=== PATIENT | male | born 1940 | race Caucasian/White ===

== ENCOUNTER 2019-10-31 01:32 | Emergency (ER) | payer MEDICARE, OTHER, SELFPAY ==
--- NOTE | 2019-10-31 01:37 | ECG_ITS ---
Measurements Intervals [place] Rate: 68 P: 15 MI: 150 QRS: -9 QRSD: 85 T: 10 QT: 372 QTc: 398 SINUS RHYTHM Compared to ECG 03/18/2018 18:04:08 Atrial fibrillation no longer present ST (T wave) deviation no longer present Electronically Signed On 11-01-2019 15:44:26 CDT by Mary Day M.D. [id number] f
--- NOTE | 2019-10-31 01:37 | XR_ITS ---
WS: [id number] PORTABLE CHEST HISTORY: cough COMPARISON: 03/18/2018 Linear atelectasis or scar in the LEFT lower lobe. Otherwise lungs are clear. No pneumonia. No pleura l effusion or pneumothorax. Cardiac size: Normal. Mediastinum/Aorta: Mild atherosclerosis aorta. No osseous abnormality seen. XR/XR chest 1V portable [id number] IMPRESSION: Minimal atelectasis or scar LEFT lower lobe. No pneumonia.
[2019-10-31 01:41] VITALS: BP 160/112; PULSE 120; RESP 18; TEMP 36.6; O2SAT 94; BMI 27.8
--- NOTE | 2019-10-31 01:51 | ED_ITS ---
HPI - Chest Pain General: Chief Complaint: Arrhythmia/Palpitations Stated Complaint: POSS AFIB Time Seen by Provider: 10/31/19 01:36 History of Present Illness: HPI narrative: Mr. Pedersen is a very nice 79-year-old male who comes in feeling chest tightness with palpitations. He has a history of paroxysmal atrial fibrillation and currently takes Eliquis for this. He states that he takes metoprolol twice daily for this and his symptoms started tonight just before taking his home metoprolol. He describes his chest discomfort as the palpitations and some mild tightness. There is no radiation of his pain. He does have some mild shortness of breath made worse with exertion. All the symptoms started tonight after his palpitations began. He denies any nausea or vomiting and he denies any diaphoresis. He believes that his palpitations may be caused by increased caffeine intake recently. Associated symptoms: Reports dyspnea and palpitations; Deny abdominal pain, diaphoresis, fever(s), nausea, syncope or vomiting Review of Systems General: Reports: other (negative unless marked) Const: Denies: fever, chills, body aches, fatigue, malaise or diaphoresis Eyes: Denies: change in vision or blurry vision ENMT: Denies: throat pain, painful swallowing, hoarseness, ear pain, ear discharge, Change in hearing or nasal discharge Card: Reports: chest pain, palpitations, irregular heart rhythm and shortness of breath on exertion; Denies: syncope, pre-syncope or shortness of breath when lying down Resp: Reports: shortness of breath; Denies: productive cough, non-productive cough, wheezing, coughing up blood or chest congestion GI: Denies: abdominal pain, nausea, vomiting, vomiting blood, coffee grounds in vomit, diarrhea, constipation, cramping, blood in stool or black tarry stool : Denies: flank pain, difficulty urinating, painful urination, urinary frequency, urinary urgency, decreased urine ouput, urinary incontinence or blood in urine Musc: Denies: neck pain, back pain, extremity pain, extremity swelling, joint pain, joint swelling, joint warmth or joint stiffness Skin/Breast: Denies: rash, skin tenderness or yellow skin Neuro: Denies: headache, numbness in extremities, weakness in extremities, changes in sensation, lack of coordination, difficulty walking, dizziness, vertigo or confusion Endo: Denies: excessive thirst, tired all the time, cold intolerance, excessive sweating, flushing or hot flashes Enmanuel/Lymph: Denies: easy bruising, easy bleeding, petechiae or enlarged lymph nodes All/Imm: Denies: hives, throat swelling, tongue swelling, facial swelling or acute wheezing PFSH ED PFSH: Social History Smoking and tobacco status: former smoker Alcohol intake: never Physical Exam Const: COMMON NORMALS: no apparent distress, oriented x3, no limitations, healthy appearing and well nourished EXAM LIMITATIONS: no altered mental status GENERAL APPEARANCE: cooperative, well kempt and well developed ORIENTATION/CONSCIOUSNESS: Yes awake HENMT: COMMON NORMALS: normocephalic, head/scalp atraumatic, hearing grossly normal bilaterally, external ears normal, EAC's normal, external nose normal and moist oral mucous membranes HEAD & SCALP: normal to inspection, normocephalic and atraumatic FACE & SINUS: normal facial exam and face symmetric NOSE: external nose normal and nares normal EXTERNAL EAR: Yes external ears normal EXTERNAL AUDITORY CANAL: EAC's normal MOUTH: oral and palatal mucosa normal and tongue normal Eye: COMMON NORMALS: PERRL, EOMs intact bilaterally, conjunctivae normal and no scleral icterus GENERAL EYE: normal appearance of both eyes and normal light reflex CONJUNCTIVA: Yes conjunctivae normal SCLERA: sclerae normal CORNEA: Yes corneas normal PUPIL: Yes PERRL DIRECT OPHTHALMOSCOPY: Yes normal light reflex Neck/C-Spine: COMMON NORMALS: full ROM, no lymphadenopathy, supple, no mening eal signs and no JVD GENERAL: Yes normal visual inspection and Yes trachea midline CERVICAL SPINE: Yes cervical ROM normal Chest: COMMONS NORMALS: inspection of chest normal and palpation of chest normal Resp: COMMON NORMALS: normal respiratory effort, no retractions, no use of accessory muscles and clear to auscultation bilaterally EFFORT & INSPECTION: Yes able to speak in complete sentences AUSCULTATION: clear to auscultation bilaterally Cardio: COMMON NORMALS: no JVD, S1 normal heart sound, S2 normal heart sound, no gallops, no clicks, no murmurs and no rub JUGULAR VENOUS DISTENTION: no JVD RATE: tachycardic RHYTHM: abnormal rhythm irregularly irregular HEART SOUNDS: S1 normal and S2 normal GI: COMMON NORMALS: soft to palpation, non-tender, no hepatosplenomegaly and no masses INSPECTION: Yes normal to inspection PALPATION: Yes soft and Yes no hepatosplenomegaly : COMMON NORMALS: Yes no CVA tenderness BLADDER/KIDNEY EXAM: Yes no CVA tenderness Back/Pelvis: COMMON NORMALS: no CVA tenderness, thoracic and lumbar spine normal to inspection, no thoracic nor lumbar tenderness and thoraco-lumbar ROM normal Extremity: COMMON NORMALS: normal to inspection, full ROM, normal capillary refill, no joint enlargement, no clubbing, cyanosis or edema and no calf tenderness Neuro: COMMON NORMALS: oriented x3, CN's II-XII intact bilaterally, moves all extremities, no focal motor deficits and no sensory deficits noted MENINGEAL SIGNS: Yes no meningeal signs Psych: COMMON NORMALS: mental status grossly normal, thought process normal, cooperative, affect normal, speech normal and activity/motor behavior normal APPEARANCE: Yes well kempt SPEECH: Yes normal speech THOUGHT PROCESS: normal thought process Skin: COMMON NORMALS: no rashes or lesions noted, skin turgor normal, no jaundice, no petechiae and no mottling GENERAL SKIN EXAM: no rashes or lesions noted and turgor normal Course Vital Signs: Vital signs: Vital Signs Temperature 97.8 F 10/31/19 01:41 Pulse Rate 120 H 10/31/19 01:41 Respiratory Rate 18 10/31/19 01:41 Blood Pressure 160/112 10/31/19 01:41 Pulse Oximetry 94 10/31/19 01:41 MDM - Chest Pain MDM Narrative: Medical decision making narrative: Mr. Pedersen is an 79-year-old male who comes in complaining of palpitations and a vague chest discomfort with this. When he arrived looked as though he was in A. fib. He had a rapid irregular heart rhythm and he has a history of going into paroxysmal A. fib. He is already anticoagulated but just a few minutes before his EKG was performed he had a change in his heart rate and he appeared regular on the monitor. Twelve-lead EKG reveals a normal sinus rhythm with no acute ST or T wave changes. I asked him about this and he said he did feel a sudden change and all this discomfort was gone. His lab work is unremarkable and his troponin is undetectable. I have offered to monitor him further with further testing of his heart but he declines. He wants to go home as he is feeling better. He understands he is welcome to return anytime should he change his mind. Lab Data: Attestation: I reviewed the patient's lab results. Labs: Lab Results 10/31/19 10/31/19 10/31/19 Range/Units 02:00 02:00 02:00 WBC 8.1 (4.0-10.0) 10^3/ uL RBC 5.61 H (4.1-5.3) 10^6/u L Hgb 17.6 H (11.7-16.6) g/dL Hct 51.4 (42.0-52.0) % MCV 91.6 (80-94) fL MCH 31.4 (28.0-34.0) pg MCHC 34.2 (30.0-36.0) g/dL RDW 13.6 (12.1-15.1) % Plt Count 215 (130-400) 10^3/c mm MPV 10.9 H (7.4-10.4) fL Neut % (Auto) 64.3 % Lymph % (Auto) 25.3 % Assumption % (Auto) 6.7 % Eos % (Auto) 2.2 % Baso % (Auto) 1.0 % Neut # (Auto) 5.2 (1.8-7.7) 10^3/u L Lymph # (Auto) 2.1 (0.8-4.8) 10^3/u L Assumption # (Auto) 0.5 (0.2-0.9) 10^3/u L Eos # (Auto) 0.2 (0.0-0.8) 10^3/u L Baso # (Auto) 0.1 (0.0-0.1) 10^3/u L Nucleated RBC % (a uto) 0 % Nucleated RBCs # 0.0 /100WBC Sodium 143 (136-145) mmol/L Potassium 4.3 (3.5-5.1) mmol/L Chloride 104 (98-107) mmol/L Carbon Dioxide 25 (22-29) mmol/L Anion Gap 18.3 (5-19) BUN 15 (8-23) mg/dL Creatinine 1.4 H (0.7-1.2) mg/dL Glucose 130 H (65-115) mg/dL Calculated Osmolal ity 294 (285-295) mOsm/k g Calcium 9.9 (8.5-10.5) mg/dL Magnesium 2.1 (1.7-2.3) mg/dL Total Bilirubin 0.4 (0.15-1.2) mg/dL AST 25 (0-40) U/L ALT 22 (0-41) U/L Alkaline Phosphata se 69 (40-130) IU/L Troponin T Baselin e 14 (0-15) ng/mL Total Protein 7.0 (6.6-8.7) g/dL Albumin 4.5 (3.5-5.2) g/dL Globulin 2.5 (1.3-4.6) g/dL TSH 4.06 (0.27-4.20) uIU/ mL Urine Color (Yellow) Urine Appearance (CLEAR) Urine pH (5-7) Ur Specific Gravit y (1.005-1.030) Urine Protein (Negative) Urine Glucose (UA) (Normal) Urine Ketones (Negative) Urine Blood (Negative) Urine Nitrate (Negative) Urine Bilirubin (NEGATIVE) Urine Urobilinogen (Negative) mg/dL Ur Leukocyte Sarah ase (Negative) Urine RBC (0-2) /hpf Urine WBC (0-5) /hpf Ur Squamous Epith Cells (0-5) Urine Bacteria (NONE) 10/30/ Range/Units 02:10 WBC (4.0-10.0) 10^3/ uL RBC (4.1-5.3) 10^6/u L Hgb (11.7-16.6) g/dL Hct (42.0-52.0) % MCV (80-94) fL MCH (28.0-34.0) pg MCHC (30.0-36.0) g/dL RDW (12.1-15.1) % Plt Count (130-400) 10^3/c mm MPV (7.4-10.4) fL Neut % (Auto) % Lymph % (Auto) % Assumption % (Auto) % Eos % (Auto) % Baso % (Auto) % Neut # (Auto) (1.8-7.7) 10^3/u L Lymph # (Auto) (0.8-4.8) 10^3/u L Assumption # (Auto) (0.2-0.9) 10^3/u L Eos # (Auto) (0.0-0.8) 10^3/u L Baso # (Auto) (0.0-0.1) 10^3/u L Nucleated RBC % (a uto) % Nucleated RBCs # /100WBC Sodium (136-145) mmol/L Potassium (3.5-5.1) mmol/L Chloride (98-107) mmol/L Carbon Dioxide (22-29) mmol/L Anion Gap (5-19) BUN (8-23) mg/dL Creatinine (0.7-1.2) mg/dL Glucose (65-115) mg/dL Calculated Osmolal ity (285-295) mOsm/k g Calcium (8.5-10.5) mg/dL Magnesium (1.7-2.3) mg/dL Total Bilirubin (0.15-1.2) mg/dL AST (0-40) U/L ALT (0-41) U/L Alkaline Phosphata se (40-130) IU/L Troponin T Baselin e (0-15) ng/mL Total Protein (6.6-8.7) g/dL Albumin (3.5-5.2) g/dL Globulin (1.3-4.6) g/dL TSH (0.27-4.20) uIU/ mL Urine Color Yellow (Yellow) Urine Appearance Clear (CLEAR) Urine pH 7 (5-7) Ur Specific Gravit y 1.010 (1.005-1.030) Urine Protein Neg (Negative) Urine Glucose (UA) Norm (Normal) Urine Ketones Negative (Negative) Urine Blood Neg (Negative) Urine Nitrate Negative (Negative) Urine Bilirubin Neg (NEGATIVE) Urine Urobilinogen Norm (Negative) mg/dL Ur Leukocyte Sarah ase Negative (Negative) Urine RBC Rare (0-2) /hpf Urine WBC Rare (0-5) /hpf Ur Squamous Epith Cells Rare (0-5) Urine Bacteria Trace (NONE) Imaging Data^: CXR: My impression: No acute cardiopulmonary findings. EKG Data^: EKG 1: Attestation: I personally reviewed and interpreted this EKG as follows: EKG interpretation date: 10/31/19 EKG interpretation time: 02:15 Interpretation: Normal sinus rhythm at 68 beats a minute, normal intervals, no blocks, no acute ST or T wave changes. Discharge Plan Discharge Patient Disposition: Home, Self-Care Clinical Impression: Atrial fibrillation Qualifiers: Atrial fibrillation type: paroxysmal Qualified Code(s): I48.0 - Paroxysmal atrial fibrillation Chest pain Qualifiers: Chest pain type: unspecified Qualified Code(s): R07.9 - Chest pain, unspecified Condition: Stable Prescriptions: No Action levothyroxine 25 mcg tablet 25 mcg PO DAILY RF: 0 simvastatin 20 mg tablet 20 mg PO DAILY RF: 0 docusate sodium 100 mg capsule 100 mg PO DAILY RF: 0 aspirin [Adult Low Dose Aspirin] 81 mg tablet,delayed release (DR/EC) 81 mg PO DAILY RF: 0 fluticasone propion-salmeterol [Advair Diskus] 250-50 mcg/dose blister with device 1 inh INHALATION Q12H RF: 0 multivitamin with minerals Tablet 1 tab PO DAILY RF: 0 metoprolol tartrate 25 mg tablet 25 mg PO BID RF: 0 Eliquis 5 mg tablet 5 mg PO BID RF: 0 Discharge Orders: Discharge Order (Routine); Ordered 10/31/19 Ordered By: Karen Umana Referrals: Les Marmolejo DO [Primary Care Provider] - 1-3 days Discharge Diet: Advance as tolerated Discharge Activity: Resume usual activity Patient Instructions: Atrial Fibrillation (ED), Chest Pain (ED) Activity Restrictions/Additional Instructions: Please return to the ER immediately for any of the signs or symptoms listed on your discharge instruction sheets, worsening/changing of your symptoms, you are not getting better as quickly as expected, or for ANY other cause or concerns. You have been offered more evaluation of your heart including more EKGs and laboratory test but you have declined. If you change your mind or your symptoms return you are more than welcome to return to the ER for recheck. Coding Level of Care Code ED Email Marketing Assistant for Stephanieg Fwd Exam Comprehensive
[2019-10-31 02:13] LABS: Basophils # 0.1 10^3/uL (0.0-0.1); Eosinophils # 0.2 10^3/uL (0.0-0.8); Eosinophils % 2.2 %; Hematocrit 51.4 % (42.0-52.0); Hemoglobin 17.6 g/dL (11.7-16.6); Lymphocytes # 2.1 10^3/uL (0.8-4.8); Lymphocytes % 25.3 %; Mean Corpuscular HGB Conc 34.2 g/dL (30.0-36.0); Mean Corpuscular Hemoglobin 31.4 pg (28.0-34.0); Mean Corpuscular Volume 91.6 fL (80-94); Mean Platelet Volume 10.9 fL (7.4-10.4); Monocytes # 0.5 10^3/uL (0.2-0.9); Monocytes % 6.7 %; Neutrophils # 5.2 10^3/uL (1.8-7.7); Neutrophils % 64.3 %; Nucleated Red Blood Cells % 0 %; Platelet Count 215 10^3/cmm (130-400); Red Blood Count 5.61 10^6/uL (4.1-5.3); Red Cell Distribution Width 13.6 % (12.1-15.1); White Blood Count 8.1 10^3/uL (4.0-10.0)
[2019-10-31 02:42] LABS: Troponin(5th) Baseline 14 ng/mL (0-15)
[2019-10-31 02:51] LABS: Alanine Aminotransferase 22 U/L (0-41); Albumin Level 4.5 g/dL (3.5-5.2); Alkaline Phosphatase 69 IU/L (40-130); Anion Gap 18.3 (5-19); Blood Urea Nitrogen 15 mg/dL (8-23); Calcium 9.9 mg/dL (8.5-10.5); Carbon Dioxide 25 mmol/L (22-29); Chloride 104 mmol/L (98-107); Globulin 2.5 g/dL (1.3-4.6); Glucose 130 mg/dL (65-115); Magnesium 2.1 mg/dL (1.7-2.3); Osmolality Calculated 294 mOsm/kg (285-295); Potassium 4.3 mmol/L (3.5-5.1); Sodium 143 mmol/L (136-145); Thyroid Stimulating Hormone 4.06 uIU/mL (0.27-4.20); Total Bilirubin 0.4 mg/dL (0.15-1.2)
[2019-10-31 02:53] LABS: Aspartate Amino Transferase 25 U/L (0-40)
[2019-10-31 03:00] LABS: Bacteria Urine TRACE; Bilirubin Urine Neg (NEGATIVE); Blood Urine Neg (Negative); Glucose Urine UA Norm (Normal); Ketones Urine Negative (Negative); Leukocyte Esterase Urine Negative (Negative); Nitrate Urine Negative (Negative); Protein Urine Neg (Negative); RBC Urine RARE /hpf (0-2); Squamous Epithelial Cell Urine RARE (0-5); Urine Appearance Clear (CLEAR); Urine Color Yellow (Yellow); Urobilinogen Urine Norm (Negative); WBC Urine RARE /hpf (0-5); pH Urine 7 (5-7)
[2019-10-31 03:30] VITALS: BP 121/88; PULSE 64; RESP 17; O2SAT 93
== END 2019-10-31 03:30 | disposition home or self-care (01) ==
PROVIDERS: Emergency Provider Emergency Medicine; Family Provider Family Medicine; PCP Family Medicine
DX: I48.0 Paroxysmal atrial fibrillation (principal); Z79.82 Long term (current) use of aspirin; Z79.01 Long term (current) use of anticoagulants; Z87.891 Personal history of nicotine dependence
CPT/HCPCS: 12345; 71045; 80053; 81001; 83735; 84443; 84484; 85025; 93005; 96360; 99283; 99284

== ENCOUNTER 2019-12-02 07:56 | Outpatient (CLI) | payer MEDICARE, OTHER, SELFPAY ==
--- NOTE | 2019-12-02 08:22 | ECG_ITS ---
NAME OF STUDY: LEXISCAN SESTAMIBI STRESS TEST INDICATION: Chest Pain, PROCEDURE: At the baseline, the EKG revealed sinus bradycardia with normal ST-T's. The baseline blood pressure was 138/70 mm Hg with a heart rate of 65 beats/min. Lexiscan was infused over a period of 20 seconds. A total of 0.4 milligrams of Lexiscan was infused. The stress phase was continued for a total of 5 minutes. Heart rate at the end of the stress phase was 74 with a blood pressure 148/82. The EKG at the peak infusion revealed normal sinus rhythm with some nonspecific T wave change. Sestamibi was injected 20 seconds after the Lexiscan infusion. Blood pressure at the end of the recovery phase was 158/83 with a heart rate of 72 per minute. CONCLUSION: 1. No significant EKG changes with the LexiScan infusion 2. No LexiScan induced chest pain or cardiac arrhythmia 3. Normal blood pressure and heart rate response 4. Sestamibi/sestamibi perfusion scan pending; see separate report. Electronically Signed On 12-02-2019 13:50:54 CDT by Michele Nguyen M.D. [id number]
--- NOTE | 2019-12-02 08:23 | NMCV_ITS ---
NM frank perf SPECT r/s* [id number] Savage Pedersen Age: 79 Gender: M : 1940 Exam Date: 12/02/2019 09:06 Ordering Phys: Michele Nguyen MD ([email or web address]) Technologist: CHRISTINE Coulter Exam Location: [facility] Indications: CHEST PAIN STRESS TEST [facility] IMAGE PROTOCOL Rest/Stress 1 Lexiscan Day Radiopharmaceutical Dose (mCi) Administration Site Administered by Rest: Tc-99m 10.4 IV CHRISTINE Carballo Sestamibi Stress:Tc-99m 32.5 IV CHRISTINE Carballo Sestamibi Rest: 02-Dec-2019 60 Discovery 630 Stress: 02-Dec-2019 30 Discovery 630 0.4mg Lexiscan. Images obtained in supine and prone position. SPECT RESULTS Technical Quality: Excellent Raw Data Analysis: Normal Image Corrections: No attenuation or motion correction applied Summed Stress Score: 0 Summed Rest Score: 0 Summed Difference Score: 0 PERFUSION FINDINGS Fairly uniform tracer uptake FUNCTIONAL RESULTS (calculated via Gated SPECT) Stress Image LV EF (%): 73 Stress EDV (mL):81 TID: 1 Stress ESV (mL):22 FUNCTIONAL FINDINGS: Segmental wall motion analysis revealing no gross wall motion normalities IMPRESSIONS 1. Unremarkable myocardial perfusion imaging. 2. Normal ejection fraction of 73%. 3. LV wall motion analysis revealing no gross wall motion normalities. 4. Normal LV volume. No significant coronary ischemia, based on the above finding Dr Michele Nguyen MD FACC (Electronically Signed) Final Date: 02 December 2019 12:59 S
[2019-12-02 08:25] VITALS: BMI 27.8
[2019-12-02] MEDS: regadenoson 0.4 Mg/5 ml Syringe IVP (10:14)
[2019-12-02 10:16] VITALS: BP 156/68; PULSE 81
== END 2019-12-02 07:57 | disposition home or self-care (01) ==
PROVIDERS: PCP Family Medicine; Visit Provider Internal Medicine Cardiovascular Disease
DX: R07.9 Chest pain, unspecified (principal); R53.83 Other fatigue
CPT/HCPCS: 78452; 93017; A9500; J2785

== ENCOUNTER → 2020-10-13 12:27 | Outpatient (BNVA) | payer MEDICARE, OTHER, SELFPAY | PROVIDERS: PCP Family Medicine; Visit Provider Internal Medicine Cardiovascular Disease | DX: I49.3 Ventricular premature depolarization (principal); R06.02 Shortness of breath; R25.2 Cramp and spasm; N18.9 Chronic kidney disease, unspecified | CPT/HCPCS: 80048; 83735; 84443 ==

== ENCOUNTER 2020-10-24 01:28 | Emergency (ER) | payer MEDICARE, OTHER, SELFPAY ==
[2020-10-24] VITALS (7 sets, daily range): BP systolic 142–195; BP diastolic 79–91; PULSE 52–70; RESP 16–18; TEMP 36.4; O2SAT 92–96; BMI 29.2
--- NOTE | 2020-10-24 01:49 | XRR_ITS ---
PROCEDURE INFORMATION: Exam: XR Chest Exam date and time: 10/24/2020 1:56 AM Age: 80 years old Clinical indication: Prior surgery; Surgery type: Cardiac stents; Patient HX: Chest pain. History of pvc. TECHNIQUE: Imaging protocol: XR of the chest. Views: 1 view. COMPARISON: 1. CR XR chest 1V portable [id number] 2019-10-31 01:52 2. CR Chest 1 [place] [id number] 2018-03-18 18:18 FINDINGS: Lungs: Left basilar subsegmental atelectasis. Pleural spaces: Unremarkable. No pleural effusion. No pneumothorax. Heart/Mediastinum: Unremarkable. No cardiomegaly. Bones/joints: Unremarkable. XR/XR chest 1V portable [id number] IMPRESSION: No acute findings.
[2020-10-24 02:00] LABS: Basophils # 0.1 10^3/uL (0.0-0.1); Eosinophils # 0.2 10^3/uL (0.0-0.8); Eosinophils % 2.6 %; Hematocrit 47.4 % (42.0-52.0); Hemoglobin 16.1 g/dL (11.7-16.6); Lymphocytes % 29.5 %; Mean Corpuscular Hemoglobin 31.3 pg (28.0-34.0); Mean Platelet Volume 10.6 fL (7.4-10.4); Monocytes # 0.6 10^3/uL (0.2-0.9); Neutrophils # 3.95 10^3/uL (1.8-7.7); Neutrophils % 57.5 %; Nucleated Red Blood Cells % 0 %; Platelet Count 178 10^3/cmm (130-400); Red Blood Count 5.15 10^6/uL (4.1-5.3); Red Cell Distribution Width 13.8 % (12.1-15.1); White Blood Count 6.9 10^3/uL (4.0-10.0)
[2020-10-24 02:15] LABS: Alanine Aminotransferase 30 U/L (0-41); Albumin Level 3.7 g/dL (3.5-5.2); Alkaline Phosphatase 53 IU/L (40-130); Blood Urea Nitrogen 18 mg/dL (8-23); Calcium 8.6 mg/dL (8.5-10.5); Carbon Dioxide 22 mmol/L (22-29); Chloride 107 mmol/L (98-107); Globulin 2.5 g/dL (1.3-4.6); Glucose 150 mg/dL (65-115); Osmolality Calculated 295 mOsm/kg (285-295); Sodium 140 mmol/L (136-145); Total Bilirubin 0.3 mg/dL (0.15-1.2); Total Protein 6.2 g/dL (6.6-8.7)
[2020-10-24 02:17] LABS: Anion Gap 15.7 (5-19); Aspartate Amino Transferase 29 U/L (0-40); Potassium 4.7 mmol/L (3.5-5.1); Troponin(5th) Baseline 17 ng/L (0-15)
--- NOTE | 2020-10-24 03:49 | ECG_ITS ---
[facility] Test Date: 2020-10-24 Pat Name: Savage Pedersen Department: Room: Gender: Male Under Baster: : 1940 Requested By: Yuridia Urias Order Number: [id number] Ximena MD: SIVAN PRAJAPATI Measurements Intervals [place] Rate: 59 P: 23 AL: 161 QRS: -7 QRSD: 93 T: 23 QT: 412 QTc: 411 Interpretive Statements SINUS BRADYCARDIA WITH OCCASIONAL VENTRICULAR PREMATURE COMPLEXES MODERATE VOLTAGE CRITERIA FOR LVH, CONSIDER NORMAL VARIANT [MEETS CRITERIA IN ONE OF: R(aVL), S(V1), R(V5), R(V5/V6)+S(V1)] Compared to ECG 10/31/2019 02:15:08 Ventricular premature complex(es) now present Sinus rhythm no longer present Electronically Signed On 10-24-2020 19:20:56 CDT by SIVAN PRAJAPATI [id number]
[2020-10-24 04:23] LABS: Troponin 5 2HR 16.26 ng/L (0-15)
[2020-10-24 04:24] LABS: Troponin 5 2HR Delta -0.74 ABS# (0-10)
--- NOTE | 2020-10-24 21:45 | W.ED.ARRPALP ---
HPI - Arrhythmia/Palpitations General: Chief Complaint: Arrhythmia/Palpitations Stated Complaint: cardiac issues/PVC Time Seen by Provider: 10/24/20 01:48 History of Present Illness: HPI narrative: 80-year-old male who presents with palpitations, and shortness of breath. 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 His metoprolol dosage was recently increased because of this. It seemed to help. But, at 11 PM, he started to get symptoms. They were significant and did not seem to go away an hour and a half after his metoprolol so he decided to come to the hospital. He is feeling a bit better now. He has a machine at home that was registering 30 PVCs per minute. They have seemed to decrease in frequency currently. MD complaint: skipped beats , palpitations and irregular heart beat Onset (ago): hour(s) Duration: constant Severity: moderate Context: occurred during rest Arrhythmia history: other Associated symptoms: Reports nausea and short of breath; Deny syncope or vomiting Treatments prior to arrival: beta-tiara Review of Systems Const: Denies: fever(s) or chills Eyes: Denies: change in vision Card: Reports: chest pain, palpitations and irregular heart rhythm; Denies: syncope Resp: Reports: dyspnea; Denies: productive cough, non-productive cough or wheezing GI: Reports: nausea; Denies: vomiting Neuro: Denies: headache(s), numbness in extremities or weakness in extremities [facility] ED PFSH: Medical History Atherosclerotic heart disease of [place] coronary artery without angina pectoris Atrial fibrillation CAD (coronary artery disease) Chronic renal insufficiency Diabetes Hyperlipidemia Hypertension Hypothyroidism Restrictive lung disease Surgical History History of back surgery History of cholecystectomy Family History Mother CAD (coronary artery disease) Diabetes Brother CAD (coronary artery disease) Father CAD (coronary artery disease) Stroke Denies family history of Clotting disorder Dementia Chronic kidney disease (CKD) Suicide Anesthesia complication Bleeding disorder Lung disease Cancer Social History Smoking and tobacco status: former smoker Alcohol intake: never Physical Exam Const: GENERAL APPEARANCE: well developed ORIENTATION/CONSCIOUSNESS: Yes oriented to person, Yes oriented to place and Yes oriented to time HENMT: COMMON NORMALS: normocephalic and Normal external nose present HEAD & SCALP: normocephalic FACE & SINUS: normal facial exam NOSE: Normal external nose present Eye: COMMON NORMALS: Equal, round and reactive pupils present, EOMs intact bilaterally and conjunctivae normal EYELID: eyelids normal CONJUNCTIVA: Yes conjunctivae normal PUPIL: Yes Equal, round and reactive pupils present Chest: COMMONS NORMALS: normal inspection of the chest CHEST: No tenderness Resp: COMMON NORMALS: clear to auscultation bilaterally EFFORT & INSPECTION: No tachypneic, No respiratory distress, No retractions, No uses accessory muscles and No tracheal deviation AUSCULTATION: clear to auscultation bilaterally, no rhonchi, no wheezes and lung sounds not diminished Cardio: RATE: bradycardic RHYTHM: abnormal rhythm irregularly irregular HEART SOUNDS: no murmurs PERIPHERAL PULSES: radial pulses present GI: INSPECTION: No abdominal distension AUSCULTATION: No Hyperactive bowel sounds present and No Hypoactive bowel sounds present PALPATION: No Guarding due to palpation present (GI) and No Rigid due to palpation PERCUSSION: no dullness to percussion and no tympanic to percussion Neuro: SENSORIUM/ORIENTATION: Yes oriented to person, Yes oriented to place and Yes oriented to time Psych: COMMON NORMALS: mental status grossly normal Skin: COMMON NORMALS: no rashes or lesions noted GENERAL SKIN EXAM: no rashes or lesions noted Course Vital Signs: Vital signs: Vital Signs Temperature 97.6 F 10/24/20 01:34 Pulse Rate 54 L 10/24/20 04:47 Respiratory Rate 18 10/24/20 04:47 Blood Pressure 142/81 10/24/20 04:47 Pulse Oximetry 94 10/24/20 04:47 MDM - Arrhythmia/Palpitations MDM Narrative: Medical decision making narrative: EKG shows a sinus rhythm with occasional PVCs at this point. He has remained that way on the monitor. his electrolytes are normal. His troponin did not elevated 2 hours. His chest x-ray is normal. With improvement in symptoms, he will be allowed home follow-up with cardiology.. Lab Data: Labs: Lab Results 10/24/20 10/24/2021 Range/Units 01:54 01:54 01:54 WBC 6.9 (4.0-10.0) 10^3/ uL RBC 5.15 (4.1-5.3) 10^6/u L Hgb 16.1 (11.7-16.6) g/dL Hct 47.4 (42.0-52.0) % MCV 92.0 (80-94) fL MCH 31.3 (28.0-34.0) pg MCHC 34.0 (30.0-36.0) g/dL RDW 13.8 (12.1-15.1) % Plt Count 178 (130-400) 10^3/c mm MPV 10.6 H (7.4-10.4) fL Neut % (Auto) 57.5 % Lymph % (Auto) 29.5 % [place] % (Auto) 9.0 % Eos % (Auto) 2.6 % Baso % (Auto) 1.0 % Neut # (Auto) 3.95 (1.8-7.7) 10^3/u L Lymph # (Auto) 2.0 (0.8-4.8) 10^3/u L [place] # (Auto) 0.6 (0.2-0.9) 10^3/u L Eos # (Auto) 0.2 (0.0-0.8) 10^3/u L Baso # (Auto) 0.1 (0.0-0.1) 10^3/u L Nucleated RBC % (a uto) 0 % Nucleated RBCs # 0.0 /100WBC Sodium 140 (136-145) mmol/L Potassium 4.7 (3.5-5.1) mmol/L Chloride 107 (98-107) mmol/L Carbon Dioxide 22 (22-29) mmol/L Anion Gap 15.7 (5-19) BUN 18 (8-23) mg/dL Creatinine 1.2 (0.7-1.2) mg/dL GFR Calculation Not Reportable Glucose 150 H (65-115) mg/dL Calculated Osmolal ity 295 (285-295) mOsm/k g Calcium 8.6 (8.5-10.5) mg/dL Magnesium 2.0 (1.7-2.3) mg/dL Total Bilirubin 0.3 (0.15-1.2) mg/dL AST 29 (0-40) U/L ALT 30 (0-41) U/L Alkaline Phosphata se 53 (40-130) IU/L Troponin T Baselin e 17 H (0-15) ng/L Troponin T 120 Min [place] (0-15) ng/L Delta Troponin T (0-10) ABS# Total Protein 6.2 L (6.6-8.7) g/dL Albumin 3.7 (3.5-5.2) g/dL Globulin 2.5 (1.3-4.6) g/dL 10/24/20 Range/Units 04:00 WBC (4.0-10.0) 10^3/ uL RBC (4.1-5.3) 10^6/u L Hgb (11.7-16.6) g/dL Hct (42.0-52.0) % MCV (80-94) fL MCH (28.0-34.0) pg MCHC (30.0-36.0) g/dL RDW (12.1-15.1) % Plt Count (130-400) 10^3/c mm MPV (7.4-10.4) fL Neut % (Auto) % Lymph % (Auto) % [place] % (Auto) % Eos % (Auto) % Baso % (Auto) % Neut # (Auto) (1.8-7.7) 10^3/u L Lymph # (Auto) (0.8-4.8) 10^3/u L [place] # (Auto) (0.2-0.9) 10^3/u L Eos # (Auto) (0.0-0.8) 10^3/u L Baso # (Auto) (0.0-0.1) 10^3/u L Nucleated RBC % (a uto) % Nucleated RBCs # /100WBC Sodium (136-145) mmol/L Potassium (3.5-5.1) mmol/L Chloride (98-107) mmol/L Carbon Dioxide (22-29) mmol/L Anion Gap (5-19) BUN (8-23) mg/dL Creatinine (0.7-1.2) mg/dL GFR Calculation Glucose (65-115) mg/dL Calculated Osmolal ity (285-295) mOsm/k g Calcium (8.5-10.5) mg/dL Magnesium (1.7-2.3) mg/dL Total Bilirubin (0.15-1.2) mg/dL AST (0-40) U/L ALT (0-41) U/L Alkaline Phosphata se (40-130) IU/L Troponin T Baselin e (0-15) ng/L Troponin T 120 Min [place] 16.26 H (0-15) ng/L Delta Troponin T -0.74 L (0-10) ABS# Total Protein (6.6-8.7) g/dL Albumin (3.5-5.2) g/dL Globulin (1.3-4.6) g/dL Discharge Plan Discharge Patient Disposition: Home Clinical Impression: Palpitations, PVC (premature ventricular contraction) Condition: Stable Prescriptions: No Action metoprolol tartrate 50 mg tablet 50 mg PO BID 90 Days Qty: 180 RF: 3 levothyroxine 25 mcg tablet 25 mcg PO DAILY RF: 0 simvastatin 20 mg tablet 20 mg PO DAILY RF: 0 docusate sodium 100 mg capsule 100 mg PO DAILY RF: 0 aspirin [Adult Low Dose Aspirin] 81 mg tablet,delayed release (DR/EC) 81 mg PO DAILY RF: 0 fluticasone propion-salmeterol [Advair Diskus] 250-50 mcg/dose blister with device 1 inh INHALATION Q12H RF: 0 multivitamin with minerals Tablet 1 tab PO DAILY RF: 0 Eliquis 5 mg tablet 5 mg PO BID RF: 0 Discharge Orders: Discharge ED (Routine); Ordered 10/24/20 Ordered By: Stefano Delaney Referrals: Michele Nguyen MD [Physician] - 4-7 days Les Marmolejo DO [Primary Care Provider] - Patient Instructions: Palpitations (ED), Premature Ventricular Contractions (ED) Activity Restrictions/Additional Instructions: Return for continued or worsening palpitations, chest discomfort, shortness of breath, fever, lethargy, syncope or passing out, other concerning symptoms. Coding Level of Care Code ED Human Resources Consultant for Noman Helms
== END 2020-10-24 04:48 | disposition home or self-care (01) ==
PROVIDERS: Physician Assistant; Emergency Provider Emergency Medicine; PCP Family Medicine
DX: I49.3 Ventricular premature depolarization (principal); Z79.01 Long term (current) use of anticoagulants; Z79.82 Long term (current) use of aspirin; I25.10 Atherosclerotic heart disease of native coronary artery without angina pectoris; E11.9 Type 2 diabetes mellitus without complications; E78.5 Hyperlipidemia, unspecified; I10 Essential (primary) hypertension; Z87.891 Personal history of nicotine dependence
CPT/HCPCS: 71045; 80053; 83735; 84484; 85025; 93005; 99283

== ENCOUNTER → 2020-11-10 10:44 | Outpatient (BNVA) | payer MEDICARE, OTHER, SELFPAY | PROVIDERS: PCP Family Medicine; Visit Provider Internal Medicine Cardiovascular Disease | DX: R06.02 Shortness of breath (principal); I50.33 Acute on chronic diastolic (congestive) heart failure; I11.0 Hypertensive heart disease with heart failure; R07.89 Other chest pain; I49.3 Ventricular premature depolarization; I25.10 Atherosclerotic heart disease of native coronary artery without angina pectoris; I48.0 Paroxysmal atrial fibrillation; E78.2 Mixed hyperlipidemia; E11.9 Type 2 diabetes mellitus without complications; Z87.891 Personal history of nicotine dependence | CPT/HCPCS: 80048; 83880 ==

== ENCOUNTER 2020-12-25 15:27 | Outpatient (CLI) | payer MEDICARE, OTHER, SELFPAY ==
--- NOTE | 2020-12-25 15:45 | USCV_ITS ---
Savage Pedersen Age: 80 Gender: M : 1940 Exam Date: 12/25/2020 15:44 Ordering Phys: Michele Nguyen MD ([email or web address]) Technologist: TL Exam Location: [facility] [place] Indication: Other chest pain BP: / HR: 62 Rhythm: Sinus Technical Quality: Adequate MEASUREMENTS (Male / Female) Normal Values 2D ECHO LV Diastolic Diameter PLAX 3.4 cm 4.2 - 5.9 / 3.9 - 5.3 cm LV Systolic Diameter PLAX 2.3 cm IVS Diastolic Thickness 1.7 cm 0.6 - 1.0 / 0.6 - 0.9 cm IVS Systolic Thickness 1.9 cm LVPW Diastolic Thickness 2.2 cm 0.6 - 1.0 / 0.6 - 0.9 cm LVPW Systolic Thickness 2.6 cm LVOT Diameter 2.0 cm LV Ejection Fraction 2D Teich 60.0 % LV Ejection Fraction MOD 2C 36.7 % LV Ejection Fraction 2C AL 35.5 % LA Diameter 3.8 cm LA Width 3.0 cm LA Height 4.3 cm RA Width 2.3 cm RA Height 3.7 cm Aorta at Sinotubular Diameter 3.1 cm M-MODE LV Diastolic Diameter MM 4.9 cm 4.2 - 5.9 / 3.9 - 5.3 cm LV Systolic Diameter MM 2.9 cm LV Ejection Fraction MM Teich 72.1 % IVS Diastolic Thickness MM 1.2 cm 0.6 - 1.0 / 0.6 - 0.9 cm IVS Systolic Thickness MM 1.5 cm LVPW Diastolic Thickness MM 1.6 cm 0.6 - 1.0 / 0.6 - 0.9 cm LVPW Systolic Thickness MM 2.1 cm Aortic Annulus Diameter 3.9 cm LA Ao Ratio MM 1.1 MV E Point Septal Separation 0.9 cm DOPPLER AV Peak Velocity 210.0 cm/s LVOT Peak Velocity 101.0 cm/s AV Area Cont Eq vti 1.5 cm squared AV Area Cont Eq pk 1.5 cm squared MV Area PHT 3.0 cm squared Mitral E to A Ratio 1.2 MV E' Velocity 44.0 cm/s Mitral E to MV E' Ratio 6.4 Mitral E to LV E' Lateral Ratio 6.3 Mitral E to LV E' Septal Ratio 6.5 TR Peak Velocity 227.7 cm/s TR Peak Gradient 20.7 mmHg TV Peak E Velocity 65.0 cm/s Right Atrial Pressure 3.0 mmHg Pulmonary Artery Systolic Pressu 23.7 mmHg PV Peak Velocity 93.0 cm/s RV Acceleration Time 0.1 s RV Ejection Time 0.4 s RV AcT/ET 0.1 FINDINGS Left Ventricle Normal left ventricular size and systolic function, EF 55 %. Mild left ventricular hypertrophy. No regional wall motion abnormalities. Right Ventricle Normal right ventricular size and systolic function. Right Atrium The right atrium is normal in size. Left Atrium The left atrium is normal in size. Mitral Valve No gross abnormalities noted Aortic Valve Thickened aortic valve. Features of aortic valve sclerosis Tricuspid Valve Trace tricuspid valve regurgitation. Estimated pulmonary artery peak systolic pressure of 24 mmHg Pulmonic Valve Pulmonic valve not well visualized. Pericardium Normal pericardium without effusion. Aorta Normal ascending aorta dimension. CONCLUSIONS Normal left ventricular size and systolic function, EF 55 %. Mild left ventricular hypertrophy. No regional wall motion abnormalities. Features of aortic valve sclerosis Trace tricuspid valve regurgitation. Estimated pulmonary artery peak systolic pressure of 24 mmHg There is no pericardial effusion. There are no intracardiac masses. Dr Michele Nguyen MD FACC (Electronically Signed) Final Date: 25 December 2020 17:26 S
== END 2020-12-25 15:28 | disposition home or self-care (01) ==
LOC: US 15:28
PROVIDERS: PCP Family Medicine; Visit Provider Internal Medicine Cardiovascular Disease
DX: R07.89 Other chest pain (principal)
CPT/HCPCS: 93306

== ENCOUNTER → 2021-09-21 15:30 | Outpatient (BNVA) | payer MEDICARE, OTHER, SELFPAY | PROVIDERS: PCP Family Medicine; Visit Provider Nurse Practitioner Family | DX: I49.3 Ventricular premature depolarization (principal); I25.10 Atherosclerotic heart disease of native coronary artery without angina pectoris; E11.9 Type 2 diabetes mellitus without complications; Z87.891 Personal history of nicotine dependence | CPT/HCPCS: 36415; 80048; 83735; 99214 ==

== ENCOUNTER → 2021-09-29 13:02 | Outpatient (BNVA) | payer MEDICARE, OTHER, SELFPAY | PROVIDERS: PCP Family Medicine; Visit Provider Internal Medicine Cardiovascular Disease | DX: R07.9 Chest pain, unspecified (principal); R00.1 Bradycardia, unspecified | CPT/HCPCS: 93246 ==

== ENCOUNTER → 2021-10-05 14:45 | Outpatient (BNVA) | payer MEDICARE, OTHER, SELFPAY | PROVIDERS: PCP Family Medicine; Visit Provider Internal Medicine Cardiovascular Disease | DX: I25.10 Atherosclerotic heart disease of native coronary artery without angina pectoris (principal); I48.0 Paroxysmal atrial fibrillation; R06.02 Shortness of breath | CPT/HCPCS: 99214 ==

== ENCOUNTER 2021-10-06 12:21 | Outpatient (CLI) | payer MEDICARE, OTHER, SELFPAY ==
[2021-10-06 13:38] LABS: Anion Gap 14.4 (5-19); Blood Urea Nitrogen 16 mg/dL (8-23); Calcium 9.4 mg/dL (8.5-10.5); Carbon Dioxide 24 mmol/L (22-29); Chloride 106 mmol/L (98-107); Glucose 119 mg/dL (65-115); NT Pro B Type Natriuretic Pept 439 pg/mL (0-450); Osmolality Calculated 292 mOsm/kg (285-295); Potassium 4.4 mmol/L (3.5-5.1); Sodium 140 mmol/L (136-145); Thyroid Stimulating Hormone 1.91 uIU/mL (0.27-4.20)
== END 2021-10-06 12:22 | disposition home or self-care (01) ==
LOC: LAB 12:24
PROVIDERS: PCP Family Medicine; Visit Provider Internal Medicine Cardiovascular Disease
DX: R06.02 Shortness of breath (principal); I50.33 Acute on chronic diastolic (congestive) heart failure; N18.9 Chronic kidney disease, unspecified
CPT/HCPCS: 80048; 83880; 84443

== ENCOUNTER 2021-10-29 03:59 | Observation (INO) | payer MEDICARE, OTHER, SELFPAY ==
[2021-10-29] VITALS (41 sets, daily range): BP systolic 123–199; BP diastolic 72–96; PULSE 38–92; RESP 0–25; TEMP 36.5–37.1; O2SAT 91–96; BMI 28.5; BMI 28.0
--- NOTE | 2021-10-29 04:24 | XRR_ITS ---
PROCEDURE INFORMATION: Exam: XR Chest Exam date and time: 10/29/2021 4:31 AM Age: 81 years old Clinical indication: Shortness of breath; Patient HX: C/O SOB and weakness. Bradycardic on monitor. TECHNIQUE: Imaging protocol: XR of the chest. Views: 1 view. COMPARISON: CR XR chest 1V portable [id number] 10/24/2020 1:54 AM FINDINGS: Lungs: There is mild subsegmental atelectasis in the left base. There is a poor inspiration with elevation of the diaphragm. No definite pneumonia. Pleural spaces: Unremarkable. No pleural effusion. No pneumothorax. Heart/Mediastinum: Unremarkable. No cardiomegaly. Bones/joints: Unremarkable. XR/XR chest 1V portable [id number] IMPRESSION: Poor inspiration with mild left basilar atelectasis.
--- NOTE | 2021-10-29 04:25 | ECG_ITS ---
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 Measurements Intervals [place] Rate: 69 P: 11 IA: 147 QRS: -6 QRSD: 98 T: 35 QT: 389 QTc: 418 Interpretive Statements SINUS RHYTHM WITH FREQUENT VENTRICULAR PREMATURE COMPLEXES IN A BIGEMINAL PATTERN MINIMAL ST DEPRESSION [0.025+ mV ST DEPRESSION] Compared to ECG 10/24/2020 03:55:56 ST (T wave) deviation now present Sinus bradycardia no longer present Electronically Signed On 10-29-2021 20:28:27 CDT by Mary Day M.D. [id number] f
--- NOTE | 2021-10-29 04:34 | ED_ITS ---
HPI - SOB/Dyspnea General: Chief Complaint: Shortness of Breath/Dyspnea Stated Complaint: SOB Time Seen by Provider: 10/29/21 04:21 Source: patient Mode of arrival: ambulatory Limitations: no limitations History of Present Illness: HPI Narrative: 81-year-old male who states has been having a history of PVCs with bradycardia. He states he has had multiple drug manipulation he was on metoprolol and Cardizem they did recently took him off his Cardizem because metoprolol in half but states that he has had increased feelings of weakness and checked his pulse tonight and it was in the 30s. He does have bigeminy here with true pulse here of 35. Denies any chest pain or shortness of breath Associated symptoms: Deny abdominal pain, nausea or vomiting Review of Systems Const: Reports: malaise Eyes: Denies: blurry vision or eye discomfort ENMT: Denies: throat pain or dental pain Card: Reports: irregular heart rhythm Resp: Denies: dyspnea GI: Denies: abdominal pain, nausea, vomiting or diarrhea : Denies: dysuria Musc: Denies: neck pain or back pain Skin/Breast: Denies: rash Neuro: Denies: headache(s) Psych: Denies: depression Enmanuel/Lymph: Denies: easy bruising All/Imm: Denies: urticaria PFSH ED PFSH: Medical History Atherosclerotic heart disease of [place] coronary artery without angina pectoris Atrial fibrillation CAD (coronary artery disease) Chronic renal insufficiency Diabetes Hyperlipidemia Hypertension Hypothyroidism Restrictive lung disease Surgical History History of back surgery History of cholecystectomy Family History Mother CAD (coronary artery disease) Diabetes Brother CAD (coronary artery disease) Father CAD (coronary artery disease) Stroke Denies family history of Clotting disorder Dementia Chronic kidney disease (CKD) Suicide Anesthesia complication Bleeding disorder Lung disease Cancer Social History Smoking and tobacco status: former smoker Alcohol intake: never Course Vital Signs: Vital signs: Vital Signs Temperature 98.7 F 10/29/21 04:18 Pulse Rate 40 L 10/29/21 04:18 Respiratory Rate 14 10/29/21 04:18 Blood Pressure 199/79 10/29/21 04:18 Pulse Oximetry 96 10/29/21 04:18 MDM - SOB/Dyspnea Medical Decision Making Patient presents here with symptomatic bradycardia his blood pressure here has been normal and his symptoms are mild with mainly malaise. He has been seeing his out of school hours care worker with modification of his medications and he is still in bigeminy here with a true pulse of 35. I discussed case with out of school hours care worker on- call Dr. Nevarez and will admit to the hospitalist with cardiology consult at this time. Lab Data : 10/29/21 04:29 10/29/21 04:29 Labs/Radiology: Laboratory Results WBC 7.3 10^3/uL (4.0-10.0) 10/29/21 04:29 RBC 5.54 10^6/uL (4.1-5.3) H 10/29/21 04:29 Hgb 17.3 g/dL (11.7-16.6) H 10/29/21 04:29 Hct 50.0 % (42.0-52.0) 10/29/21 04:29 MCV 90.3 fl (80-94) 10/29/21 04: MCH 31.2 pg (28.0-34.0) 10/29/21 04: MCHC 34.6 g/dL (30.0-36.0) 10/29/21 04:29 RDW 13.6 % (12.1-15.1) 10/29/21 04:29 Plt Count 179 10^3/cmm (130-400) 10/29/21 04:29 MPV 11.0 fL (7.4-10.4) H 10/29/21 04:29 Neut % (Auto) 48.3 % 10/29/21 04:29 Lymph % (Auto) 38.8 % 10/29/21 04:29 Gem % (Auto) 9.3 % 10/29/21 04:29 Eos % (Auto) 2.1 % 10/29/21 04:29 Baso % (Auto) 1.0 % 10/29/21 04:29 Neut # (Auto) 3.52 10^3/uL (1.8-7.7) 10/29/21 04:29 Lymph # (Auto) 2.8 10^3/uL (0.8-4.8) 10/29/21 04: Gem # (Auto) 0.7 10^3/uL (0.2-0.9) 10/29/21 04: Eos # (Auto) 0.2 10^3/uL (0.0-0.8) 10/29/21 04: Baso # (Auto) 0.1 10^3/uL (0.0-0.1) 10/29/21 04: Nucleated RBC % (auto) 0 % 10/29/21 04: Nucleated RBCs # 0.0 /100WBC 10/29/21 04: PT 15.30 SECONDS (12.1-14.9) H 10/29/21 04: INR 1.17 (0.8-1.2) 10/29/21 04: Sodium 138 mmol/L (136-145) 10/29/21 04: Potassium 4.1 mmol/L (3.5-5.1) 10/29/21 04: Chloride 103 mmol/L (98-107) 10/29/21 04: Carbon Dioxide 22 mmol/L (22-29) 10/29/21 04: Anion Gap 17.1 (5-19) 10/29/21 04: BUN 20 mg/dL (8-23) 10/29/21 04: Creatinine 1.2 mg/dL (0.7-1.2) 10/29/21 04: GFR Calculation Not Reportable 10/29/21 04: Glucose 108 mg/dL (65-115) 10/29/21 04: Calculated Osmolality 289 mOsm/kg (285-295) 10/29/21 04: Calcium 9.9 mg/dL (8.5-10.5) 10/29/21 04: Total Bilirubin 1.1 mg/dL (0.15-1.2) 10/29/21 04: AST 17 U/L (0-40) 10/29/21 04: ALT 19 U/L (0-41) 10/29/21 04: Alkaline Phosphatase 54 IU/L (40-130) 10/29/21 04: Troponin T Baseline 15 ng/L (0-15) 10/29/21 04:29 Total Protein 7.0 g/dL (6.6-8.7) 10/29/21 04: Albumin 4.0 g/dL (3.5-5.2) 10/29/21 04: Globulin 3.0 g/dL (1.3-4.6) 10/29/21 04:29 EKG Data EKG 1: I personally reviewed and interpreted this EKG as follows: EKG Interpretation Date: 10/29/21 EKG interpretation time: Interpretation: bigeminy frequent pvc bradycardia no st or t wave abnormaliies qrs 98 qtc 408 Discharge Plan Discharge Patient Disposition: Admitted As Inpatient Clinical Impression: Bradycardia, Bigeminy Condition: Stable Coding Level of Care Code ED Food And Beverage Attendant for Noman Helms
[2021-10-29 04:38] LABS: Basophils # 0.1 10^3/uL (0.0-0.1); Eosinophils # 0.2 10^3/uL (0.0-0.8); Eosinophils % 2.1 %; Hemoglobin 17.3 g/dL (11.7-16.6); Lymphocytes # 2.8 10^3/uL (0.8-4.8); Lymphocytes % 38.8 %; Mean Corpuscular HGB Conc 34.6 g/dL (30.0-36.0); Mean Corpuscular Hemoglobin 31.2 pg (28.0-34.0); Mean Corpuscular Volume 90.3 fl (80-94); Monocytes # 0.7 10^3/uL (0.2-0.9); Monocytes % 9.3 %; Neutrophils # 3.52 10^3/uL (1.8-7.7); Neutrophils % 48.3 %; Nucleated Red Blood Cells % 0 %; Platelet Count 179 10^3/cmm (130-400); Red Blood Count 5.54 10^6/uL (4.1-5.3); Red Cell Distribution Width 13.6 % (12.1-15.1); White Blood Count 7.3 10^3/uL (4.0-10.0)
[2021-10-29 04:55] LABS: INR 1.17 (0.8-1.2)
[2021-10-29 04:59] LABS: Alanine Aminotransferase 19 U/L (0-41); Alkaline Phosphatase 54 IU/L (40-130); Anion Gap 17.1 (5-19); Aspartate Amino Transferase 17 U/L (0-40); Blood Urea Nitrogen 20 mg/dL (8-23); Calcium 9.9 mg/dL (8.5-10.5); Carbon Dioxide 22 mmol/L (22-29); Chloride 103 mmol/L (98-107); Glucose 108 mg/dL (65-115); Osmolality Calculated 289 mOsm/kg (285-295); Potassium 4.1 mmol/L (3.5-5.1); Sodium 138 mmol/L (136-145); Total Bilirubin 1.1 mg/dL (0.15-1.2); Troponin(5th) Baseline 15 ng/L (0-15)
[2021-10-29 05:17] LABS: NT Pro B Type Natriuretic Pept 213 pg/mL (0-450)
--- NOTE | 2021-10-29 05:45 | P.HP_ITS ---
Providers/Chief Complaint Admitting Physician: Elise Erickson MD Primary Care Provider: Les Marmolejo DO Chief Complaint: SOB History of Present Illness Savage Pedersen is a 81 year old male with h/o CAD, stent placement, and HTN who presented to ED with low HR. His HR at home was around 37-38. He had mild dyspnea. No chest pain. He states his meds have recently been adjusted due to bradycardia. Cardizem was discontinued. Dose of metoprolol was reduced. He is evaluated in ED and noted to have bigeminy on EKG. HR currently 65-70/min. Patient to be placed in observation for cardiology consult and further evaluation Review of Systems General: Reports: 10 or more systems reviewed and unremarkable except in HPI and below Const: Denies: fever(s), chills or body aches Card: Denies: chest pain or palpitations Resp: Reports: dyspnea; Denies: productive cough or wheezing GI: Denies: abdominal pain, nausea or vomiting Musc: Denies: neck pain, back pain or joint pain Skin/Breast: Denies: rash or pruritus Neuro: Denies: headache(s) or numbness in extremities Psych: Denies: anxiety or depression Endo: Denies: polyuria or polydipsia Enmanuel/Lymph: Denies: easy bruising or easy bleeding Medications/Allergies Home Medications Medication Instructions Recorded Confirmed Last Taken Type apixaban 5 mg tablet (Eliquis) 5 mg PO BID 09/11/19 09/21/21 Unknown History docusate sodium 100 mg capsule 100 mg PO DAILY 09/11/19 09/21/21 Unknown History fluticasone 250 mcg-salmeterol 50 1 inh INHALATION Q12H 09/11/19 09/21/21 Unknown History mcg/dose blistr powdr for inhalation (Advair Diskus) levothyroxine 25 mcg tablet 25 mcg PO DAILY 09/11/19 09/21/21 Unknown History multivitamin with minerals 1 tab PO DAILY 09/11/19 09/21/21 Unknown History simvastatin 20 mg tablet 20 mg PO DAILY 09/11/19 09/21/21 Unknown History magnesium oxide 400 mg PO DAILY #90 tab 10/30/20 09/21/21 Unknown Rx isosorbide dinitrate 5 mg tablet 5 mg PO BID #180 tab 11/27/20 09/21/21 Unknown Rx Custom Functional Molded Orthotics #1 ea 04/27/21 09/21/21 Unknown Rx metoprolol tartrate 50 mg tablet 25 mg PO BID 90 Days #90 tab 10/05/21 10/05/21 Unknown Rx diltiazem HCl 30 mg tablet 30 mg PO Q8H #90 tab 10/08/21 Unknown Rx Allergies Allergy/AdvReac Type Severity Reaction Status Date / Time No Known Allergies Allergy Verified 10/05/21 08:48 PFSH Acute PFSH: Medical History Atherosclerotic heart disease of [place] coronary artery without angina pectoris Atrial fibrillation CAD (coronary artery disease) Chronic renal insufficiency Diabetes Hyperlipidemia Hypertension Hypothyroidism Restrictive lung disease Surgical History History of back surgery History of cholecystectomy Family History Mother CAD (coronary artery disease) Diabetes Brother CAD (coronary artery disease) Father CAD (coronary artery disease) Stroke Denies family history of Clotting disorder Dementia Chronic kidney disease (CKD) Suicide Anesthesia complication Bleeding disorder Lung disease Cancer Social History Smoking and tobacco status: former smoker Alcohol intake: never Vitals/I&O/Wt Last Vital Signs Temp 98.7 F 10/29/21 04:18 Pulse 40 L 10/29/21 04:18 Resp 14 10/29/21 04:18 BP 199/79 10/29/21 04:18 Pulse Ox 96 10/29/21 04:18 Weight last 48 hrs Weight 92.986 kg Physical Exam Const: COMMON NORMALS: no acute distress, patient oriented x3 and alert Neck/C-Spine: COMMON NORMALS: full ROM, no meningeal signs and No carotid bruits Resp: AUSCULTATION: clear to auscultation bilaterally Cardio: OTHER: irregular with rate of 70/min GI: PALPATION: Yes Soft to palpation, No Tenderness to palpation present (GI), No Guarding due to palpation present (GI) and Yes No hepatosplenomegaly present Extremity: GENERAL: No clubbing, No cyanosis and No edema Neuro: COMMON NORMALS: patient oriented x3, moves all extremities, no focal motor deficits, no sensory deficits noted and deep tendon reflexes 2+ bilaterally Psych: APPEARANCE: Yes grossly normal ATTITUDE: Yes calm SPEECH: Yes normal speech THOUGHT CONTENT: Yes Normal thought content present ATTENTION/CONCENTRATION: Yes attention grossly intact Skin: GENERAL SKIN EXAM: no rashes or lesions noted Data : 10/29/21 04:29 10/29/21 04:29 A&P Assessment and plan (1) Bradycardia: Patient has h/o atrial fib and is on eliquis. Lately noted to have PVC. Cardizem stopped due to bradycardia. Will hold metoprolol Presented with HR in 38-40/min range at home EKG- bigeminy with can labeler closely Cardiology consult Status: Acute (2) Atherosclerotic heart disease of [place] coronary artery without angina pectoris: Resume home meds of imdur, statin Status: Acute Qualifiers: [place] vs. transplanted heart: [place] heart Qualified Code(s): I25.10 - Atherosclerotic heart disease of [place] coronary artery without angina pectoris Attestations Medical Necessity Statement*: Patient placed in observation for additional assessment of bradycardia including cardiology evaluation for possible pacemaker Coding Level of Care Code Acute Forestry Extension Specialist for Chg Fwd History Expanded Problem Focused Exam Expanded Problem Focused Medical Decision Making Moderate Complexity Diagnoses Bradycardia R00.1 Atherosclerotic heart disease of [place] coronary artery without angina pectoris I25.10 [place] vs. transplanted heart: [place] heart
--- NOTE | 2021-10-29 06:25 | ECG_ITS ---
[facility] Test Date: 2021-10-29 Pat Name: Savage Pedersen Department: Room: ICU11 Gender: Male Rn Community Health: : 1940 Requested By: Herve Bowens Order Number: [id number] Ximena MD: Mary Day M.D. Measurements Intervals [place] Rate: 76 P: 9 TN: 165 QRS: -24 QRSD: 92 T: 9 QT: 385 QTc: 434 Interpretive Statements SINUS RHYTHM WITH FREQUENT ECTOPIC PREMATURE COMPLEXES BORDERLINE LEFT AXIS DEVIATION [QRS AXIS < -20] MINIMAL VOLTAGE CRITERIA FOR LVH, CONSIDER NORMAL VARIANT [MEETS CRITERIA IN ONE OF: R(aVL), S(V1), R(V5), R(V5/V6)+S(V1)] ABNORMAL RHYTHM ECG Compared to ECG 10/29/2021 12:16:33 Ventricular premature complex(es) no longer present ST (T wave) deviation no longer present Electronically Signed On 10-29-2021 20:41:36 CDT by Mary Day M.D. [id number]
[2021-10-29 07:08] LABS: Troponin 5 2HR 16.55 ng/L (0-15)
[2021-10-29 07:09] LABS: Troponin 5 2HR Delta 1.55 ABS# (0-10)
[2021-10-29] MEDS: atorvastatin 40 mg Tablet 20 MG PO (07:53)
[2021-10-29] MEDS: apixaban 5 mg Tablet PO ×2 (07:53→17:25)
[2021-10-29] MEDS: levothyroxine 25 mcg Tablet PO (07:53)
--- NOTE | 2021-10-29 08:27 | PC.PHAR ---
PT STATES HE TAKES CARE OF HIS OWN MEDICATIONS-PT STATES HIS DILTIAZEM 30MG Q8H WAS DCED ON MON 10/25/21-EXT MED HISTORY SHOWS LAST FILLED 10/08/21 5D/S
--- NOTE | 2021-10-29 10:25 | ECG_ITS ---
[facility] Test Date: 2021-10-29 Pat Name: Savage Pedersen Department: Room: ICU11 Gender: Male Digital Marketing Associate: : [id number] Requested By: Herve Bowens Order Number: [id number] Reading MD: Mary Day M.D. Measurements Intervals Temple Rate: 66 P: 0 CO: 151 QRS: -24 QRSD: 90 T: 6 QT: 384 QTc: 403 Interpretive Statements SINUS RHYTHM WITH FREQUENT VENTRICULAR PREMATURE COMPLEXES BORDERLINE LEFT AXIS DEVIATION [QRS AXIS < -20] MODERATE VOLTAGE CRITERIA FOR LVH, CONSIDER NORMAL VARIANT [MEETS CRITERIA IN ONE OF: R(aVL), S(V1), R(V5), R(V5/V6)+S(V1)] MODERATE ST DEPRESSION [0.05+ mV ST DEPRESSION] Compared to ECG 10/29/2021 04:22:44 No significant changes Electronically Signed On 10-29-2021 20:51:29 CDT by Mary Day M.D. [id number]
--- NOTE | 2021-10-29 10:35 | PC.CHAP ---
Pastoral Care Encounter/Spiritual Assessment Type of Contact [] Declined cyber operator visit [] Patient/Family/Request visit [] Outpatient visit [] Follow-up visit [] Physician referral [] Code/Alert [x] Routine visit [] Staff referral [] Actively dying [] Patient sleeping [] Family support [] [] Out of room [] Palliative care [] [] Receiving care in room [] Pre-surgical visit [] Trauma [] Long length of stay [] ICU visit [] Other: Relational/Emotional Strength [] Patient feels connected with others/family/visitors/staff [] Distress [] Loneliness/isolation [] Abandonment Spirituality of Patient [x] Person of Piper [] Attends Congregation of their Piper [x] Believes in Prayer [] Reads Bible or Church materials [] There are Spiritual issues to be addressed Crown Blocker Interventions [x] Prayer [x] Active listening [x] Non-anxious presence x[] Spiritual/emotional support [] Crisis/trauma care [] Spiritual counseling [] Bereavement support [] Provided bereavement packet [] Provided Bible/devotional materials [] Provided toy/stuffed animal, coloring book to patient or family member [] Provided Communion [] Anointing/Coin [] Salvation [x] Completed spiritual assessment [] Other: Impact on Illness or Injury [] Angry [] Fearful [] Anxious [] Often cries [] Exhaustion [] Unable to work [] Unable to attend yazidi [] Unable to walk/stand [] Unable to read [] Unable to drive [] Unable to eat/drink [] Unable to sleep [] Unable to be with family [] Patient intubated [] Other: Summary Time spent with patient 10 min
[2021-10-29 10:54] LABS: Troponin 5 6HR 17.29 ng/L (0-15)
[2021-10-29 10:57] LABS: Troponin 5 6HR Delta 2.29 ng/L (0-12)
--- NOTE | 2021-10-29 11:12 | P.MISC_ITS ---
Miscellaneous Note Purpose of Documentation: Mini progress note Note: Patient was seen this morning. He the cardiology office letting them know that he was having lesser PVCs but also lower heart rate and he was asked to stop taking the Cardizem. He states he stopped the Cardizem and then when he checked his heart rate last night it was down to 37 and at that point he decided he should come to the hospital. He did feel a little fatigued with some malaise but otherwise was fine. Denies any lightheadedness. He stated that he never really gets symptomatic when he has his low heart rate. Other than feeling a little fatigued. His blood pressure is always remained stable. He is on Imdur 5 mg twice daily at home. Patient appears well right now and feels okay. He states that he is looking forward to seeing the health sciences program coordinator to see what he has to say. He has been told in the past however that if it is tough for to get a control on his heart rate in terms of bradycardia he might end up getting a pacemaker. Patient would like to know if he will be getting a pacemaker at this admission. There was also discussion done with the patient regarding his CODE STATUS. Patient states that he would like to be a DNR/DNI at this time. He states he has a living will which also lists that. When I asked him if his family knows that he states most likely asked to know that as they have had discussions in the past. I called patient's son as well to let him know that patient would like to have a DNR DNI status and patient's son says that that is okay. I also attempted to call patient's to let her know of the same thing and patient son told me that she was up all night and therefore is probably sleeping and he will just let her know. He also wanted to know what time patient will be seen by the health sciences program coordinator today. Patient heart rate is high 40s to low 50s at this time when seen. He is not receiving any metoprolol or Cardizem during this admission. Patient does have high blood pressure throughout the checker bak[employer] hours. We will recheck it. If needed may give as needed hydralazine every 4 hours IV until seen by cardiology for further recommendations.
--- NOTE | 2021-10-29 12:05 | PC.NURSE ---
Report called to YASMIN DIMAS. patient and belongings transported to ICU with Krystina DIMAS.
--- NOTE | 2021-10-29 13:00 | PC.NURSE ---
Dr Tucker here orders aware of heart rate noon meal served
--- NOTE | 2021-10-29 13:15 | P.CONIM_ITS ---
Providers/Reason For Consult Consulting Physician/Specialty*: Cardiovascular medicine Reason for Consult*: Bradycardia Requesting Physician: Hospitalist Attending Physician: Ana Acosta MD Primary Care Provider: Les Marmolejo DO History of Present Illness History of Present Illness Savage Pedersen is a 81 year old male who has a history of PVCs. He also allegedly has a history of atrial fibrillation. His other medical history includes chronic renal insufficiency, diabetes, dyslipidemia, hypertension, hypothyroidism, restrictive lung disease. He is on an anticoagulant. Over the last several weeks he purchased a [employer] mobile device. He checks his rhythm several times a day. He has become very fearful of his PVCs. Originally he was placed on a beta-tiara by Dr. Nguyen. A monitor was placed to evaluate the success of the beta-tiara and calming down the PVCs. Patient becomes very anxious about the PVCs and wanted them treated despite the fact that he has no underlying organic heart disease according to echo and stress testing. The monitor revealed that the beta-tiara was slowing his heart rate down. He was on 50 mg of metoprolol tartrate twice daily. Dr. Nguyen then decrease that dose by half and added short acting Cardizem 30 mg 3 times a day. The patient continued to check his heart rate and rhythm by the [employer] mobile device and called the office earlier this week. Dr. Nguyen is out of town and so I told the patient to stop the Cardizem. He continues to check with the mobile device and has noticed on occasion that he has ventricular bigeminy. This is made him extremely nervous. Last evening he was up most of the night checking his heart rate on the device. At 3:00 in the morning he came into the hospital with heart rates in the 30s apparently. He was admitted to the floor and I was called this morning at 8:00 and simply told him to stop the medications. For some reason he was transferred to the ICU. He is in sinus rhythm with occasional PVCs and a heart rate of 74 right now. Review of Systems Narrative: Review of systems is negative other than the anxiety over the PVCs Medications/Allergies Home Medications Medication Instructions Recorded Confirmed Last Taken Type apixaban 5 mg tablet (Eliquis) 5 mg PO BID 09/11/19 10/29/21 Unknown History docusate sodium 100 mg capsule 100 mg PO QPM 09/11/19 10/29/21 Unknown History fluticasone 250 mcg-salmeterol 50 1 inh INHALATION Q12H 09/11/19 10/29/21 Unknown History mcg/dose blistr powdr for inhalation (Advair Diskus) levothyroxine 25 mcg tablet 25 mcg PO QAM 09/11/19 10/29/21 Unknown History simvastatin 20 mg tablet 20 mg PO BEDTIME 09/11/19 10/29/21 Unknown History isosorbide dinitrate 5 mg tablet 5 mg PO BID #180 tab 11/27/20 10/29/21 Unknown Rx Custom Functional Molded Orthotics #1 ea 04/27/21 10/29/21 Unknown Rx metoprolol tartrate 50 mg tablet 25 mg PO BID 90 Days #90 tab 10/05/21 10/29/21 Unknown Rx albuterol sulfate 90 mcg/actuation 2 puff INHALATION QID PRN 10/29/21 10/29/21 Unknown History aerosol inhaler ascorbic acid (vitamin C) 500 mg 500 mg PO DAILY 10/29/21 10/29/21 Unknown History tablet (Vitamin C) magnesium oxide 400 mg PO QAM 10/29/21 10/29/21 Unknown History vit C 250 mg-vit E 90 mg-zinc 40 1 cap PO DAILY 10/29/21 10/29/21 Unknown History mg-copper 1 [id number] capsule (PreserVision AREDS-2) Allergies Allergy/AdvReac Type Severity Reaction Status Date / Time No Known Allergies Allergy Verified 10/29/21 08:24 Current Medications Generic Name Dose Route Start Last Admin Trade Name Freq PRN Reason Stop Dose Admin Apixaban 5 mg 10/29/21 09:00 10/29/21 07:53 Apixaban 5 Mg Tablet PO 5 mg BID HUBERT Administration Atorvastatin Calcium 20 mg 10/29/21 09:00 10/29/21 07:53 Atorvastatin 40 Mg Tablet PO 20 mg DAILY HUBERT Administration Levothyroxine Sodium 25 mcg 10/29/21 09:00 10/29/21 07:53 Levothyroxine 25 Mcg Tablet PO 25 mcg DAILY HUBERT Administration Non-Formulary Medication 5 mg 10/29/21 09:00 10/29/21 07:52 Isosorbide Dinitrate PO Not Given BID HUBERT PFSH Acute PFSH: Medical History (Updated 10/29/21 @ 13:23 by Conor Tucker MD) Anticoagulation adequate with anticoagulant therapy Atherosclerotic heart disease of [place] coronary artery without angina pectoris Atrial fibrillation CAD (coronary artery disease) Chronic renal insufficiency Diabetes Hyperlipidemia Hypertension Hypothyroidism Restrictive lung disease Surgical History History of back surgery History of cholecystectomy Family History Mother CAD (coronary artery disease) Diabetes Brother CAD (coronary artery disease) Father CAD (coronary artery disease) Stroke Denies family history of Clotting disorder Dementia Chronic kidney disease (CKD) Suicide Anesthesia complication Bleeding disorder Lung disease Cancer Social History Smoking and tobacco status: former smoker Alcohol intake: never Vitals/I&O/Wt Last Vital Signs Temp 97.9 F 10/29/21 12:05 Pulse 68 10/29/21 12:05 Resp 22 H 10/29/21 12:05 BP 163/90 10/29/21 12:05 Pulse Ox 96 10/29/21 12:05 10/28/21 10/29/21 10/29/21 22:59 06:59 14:59 Output Total 950 / 950 Balance -950 / -950 Weight last 48 hrs Weight 201 lb Weight 205 lb Physical Exam Narrative: GENERAL: In general he looks and feels well HEENT: Exam within normal limits. NECK: Supple without jugular vein distention. The carotid upstroke is normal without bruits. BACK: Exam normal. LUNGS: Clear. HEART: Regular rate and rhythm. ABDOMEN: Benign without organomegaly or tenderness. EXTREMITIES: No edema. NEUROLOGIC: Exam normal. SKIN: Unremarkable. Data : 10/29/21 04:29 10/29/21 04:29 A&P Assessment and plan (1) Bradycardia: Status: Acute (2) Atherosclerotic heart disease of [place] coronary artery without angina pectoris: Status: Acute Qualifiers: [place] vs. transplanted heart: [place] heart Qualified Code(s): I25.10 - Atherosclerotic heart disease of [place] coronary artery without angina pectoris (3) PVC (premature ventricular contraction): Status: Acute (4) Hyperlipidemia: Status: Acute Qualifiers: Hyperlipidemia type: mixed hyperlipidemia Qualified Code(s): E78.2 - Mixed hyperlipidemia (5) Hypertension: Status: Acute Qualifiers: Hypertension type: essential hypertension Qualified Code(s): I10 - Essential (primary) hypertension (6) Diabetes: Status: Acute Qualifiers: Diabetes mellitus type: type 2 Diabetes mellitus half-way insulin use: without half-way use Diabetes mellitus complication status: without complication Qualified Code(s): E11.9 - Type 2 diabetes mellitus without complications (7) Atrial fibrillation: Status: Acute Qualifiers: Atrial fibrillation type: paroxysmal Qualified Code(s): I48.0 - Paroxysmal atrial fibrillation (8) Anticoagulation adequate with anticoagulant therapy: Status: Acute Plan My opinion is that this man should not be treated for the PVCs. He should also either give away or throw away the mobile device that he has. Its only making him nervous. He actually showed me several strips on his cell phone where he noticed that he was having bigeminy. He is very nervous that the premature beats are going to harm him. He asked me if these PVCs are every other beat without harm my heart? He has normal LV function by echo on December 25 of last year. Perfusion imaging 2 years ago revealed normal cardiac perfusion. Treating him is only causing bradycardia. He becomes symptomatic only when he sees these things on the mobile device that he has at home. If he would simply not use the device he would ultimately figure out that the PVCs are benign and do not need to be treated. He certainly does not need a pacemaker. For now I would simply monitor him off both the beta-tiara and calcium channel tiara. If he is 1 of those rare patients who cannot get over the symptoms he has with the PVCs then he could be treated with flecainide or one of the other antiarrhythmics which would not cause bradycardia but I would try everything I could not to treat these PVCs. He can be moved out of the ICU. Coding Level of Care Code New Pt Acute Oil Extractor for Chg Fwd Patient Type New History Detailed Exam Detailed Medical Decision Making Moderate Complexity Diagnoses Bradycardia R00.1 Atherosclerotic heart disease of [place] coronary artery without angina pectoris I25.10 [place] vs. transplanted heart: [place] heart PVC (premature ventricular contraction) I49.3 Hyperlipidemia E78.2 Hyperlipidemia type: mixed hyperlipidemia Hypertension I10 Hypertension type: essential hypertension Diabetes E11.9 Diabetes mellitus type: type 2 Diabetes mellitus half-way insulin use: without half-way use Diabetes mellitus complication status: without complication Atrial fibrillation I48.0 Atrial fibrillation type: paroxysmal Anticoagulation adequate with anticoagulant therapy Z79.01
[2021-10-29] MEDS: isosorbide dinitrate 20 mg Tablet 5 MG PO (17:25)
[2021-10-30] VITALS (21 sets, daily range): BP systolic 129–132; BP diastolic 71–79; PULSE 58–81; RESP 12–24; TEMP 36.8; O2SAT 94
--- NOTE | 2021-10-30 07:08 | P.PN_ITS ---
Subjective Subjective: PVCs persist however the heart rates in the 60s and 70s. Vitals/I&O/Wt Last Vital Signs Temp 98.3 F 10/30/21 00:00 Pulse 70 10/30/21 05:46 Resp 15 10/30/21 05:30 BP 132/71 10/30/21 02:00 Pulse Ox 92 10/29/21 20:00 10/29/21 10/30/21 10/30/21 22:59 06:59 14:59 Intake Total 650 / 650 300 / 950 Balance 650 / -300 300 / 0 Weight last 48 hrs Weight 201 lb Weight 205 lb Physical Exam Narrative: GENERAL: In general he looks and feels well HEENT: Exam within normal limits. NECK: Supple without jugular vein distention. The carotid upstroke is normal without bruits. BACK: Exam normal. LUNGS: Clear. HEART: Regular rate and rhythm. ABDOMEN: Benign without organomegaly or tenderness. EXTREMITIES: No edema. NEUROLOGIC: Exam normal. SKIN: Unremarkable. Data : 10/29/21 04:29 10/29/21 04:29 A&P Assessment and plan (1) Anticoagulation adequate with anticoagulant therapy: Status: Acute (2) Bradycardia: Status: Acute (3) Atherosclerotic heart disease of [place] coronary artery without angina pectoris: Status: Acute Qualifiers: [place] vs. transplanted heart: [place] heart Qualified Code(s): I25.10 - Atherosclerotic heart disease of [place] coronary artery without angina pectoris (4) Bigeminy: Status: Acute (5) Hyperlipidemia: Status: Acute Qualifiers: Hyperlipidemia type: mixed hyperlipidemia Qualified Code(s): E78.2 - Mixed hyperlipidemia (6) Hypertension: Status: Acute Qualifiers: Hypertension type: essential hypertension Qualified Code(s): I10 - Essential (primary) hypertension (7) Diabetes: Status: Acute Qualifiers: Diabetes mellitus type: type 2 Diabetes mellitus intermediate insulin use: without intermediate use Diabetes mellitus complication status: without complication Qualified Code(s): E11.9 - Type 2 diabetes mellitus without complications Plan I think he can go home. He read my note on the patient portal so we had a long discussion about PVCs, their benign nature and whether or not this should be treated. I think he understands that he has only had difficulties with the medications and the mobile device. Once he had a chance to think about it he understands what he has been doing with respect to getting anxious about the PVCs. He can go home and follow-up as previously noted with Dr. Nguyen. Attestations Medical Necessity Statement*: May be discharged today. Coding Level of Care Code Established Pt Acute Oracle Database Analyst for Stephanieg Fwd Patient Type Established History Detailed Exam Detailed Medical Decision Making Moderate Complexity Diagnoses Anticoagulation adequate with anticoagulant therapy Z79.01 Bradycardia R00.1 Atherosclerotic heart disease of [place] coronary artery without angina pectoris I25.10 [place] vs. transplanted heart: [place] heart Bigeminy I49.8 Hyperlipidemia E78.2 Hyperlipidemia type: mixed hyperlipidemia Hypertension I10 Hypertension type: essential hypertension Diabetes E11.9 Diabetes mellitus type: type 2 Diabetes mellitus intermediate insulin use: without termite renewal inspector use Diabetes mellitus complication status: without complication
--- NOTE | 2021-10-30 07:50 | PM.DCS ---
Discharge Providers Date of Admission: 10/29/21 04:37 Date of Discharge: October 30, 2021 Attending Provider at Admission: Elise Erickson MD Attending Provider at Discharge: Ana Acosta MD Consults: Cardiology, Dr. Tucker Primary Care Provider: Les Marmolejo DO Diagnoses at Discharge Discharge Diagnosis (1) Anticoagulation adequate with anticoagulant therapy: Status: Acute (2) Bradycardia: Status: Acute (3) Atherosclerotic heart disease of [place] coronary artery without angina pectoris: Status: Acute Qualifiers: [place] vs. transplanted heart: [place] heart Qualified Code(s): I25.10 - Atherosclerotic heart disease of [place] coronary artery without angina pectoris (4) [place]iny: Status: Acute (5) Hyperlipidemia: Status: Acute Qualifiers: Hyperlipidemia type: mixed hyperlipidemia Qualified Code(s): E78.2 - Mixed hyperlipidemia (6) Hypertension: Status: Acute Qualifiers: Hypertension type: essential hypertension Qualified Code(s): I10 - Essential (primary) hypertension (7) Diabetes: Status: Acute Qualifiers: Diabetes mellitus type: type 2 Diabetes mellitus longterm insulin use: without manager intermediate use Diabetes mellitus complication status: without complication Qualified Code(s): E11.9 - Type 2 diabetes mellitus without complications Reason for Visit Reason for Visit: SOB Brief History: HPI as per Dr. Erickson Savage Pedersen is a 81 year old male with h/o CAD, stent placement, and HTN who presented to ED with low HR. His HR at home was around 37-38. He had mild dyspnea. No chest pain. He states his meds have recently been adjusted due to bradycardia. Cardizem was discontinued. Dose of metoprolol was reduced. He is evaluated in ED and noted to have bigeminy on EKG. HR currently 65-70/min. Patient to be placed in observation for cardiology consult and further evaluation Hospital Course Hospital Course Patient was admitted for bradycardia. He has a device at home with which he can monitor heart rhtym, he was noticing a lot of PVC's. He has been seeing Dr. Nguyen as an outpatient to treat his PVCs. He does have a history of atrial fibrillation for which he was on Cardizem. Metoprolol was also added to treat the PVCs. However he started getting bouts of bradycardia down to lowest being 36/37. At that point he came to the ER. He was seen by cardiology here. Beta-tiara was stopped. Cardizem was stopped a few days prior when he called the office. He was monitored on telemetry overnight. He was seen by cardiology inpatient. Patient has been having a good heart rate between 60s to 70s without being on any medication. There were PVCs seen on telemetry with patient is asymptomatic. Long discussion was done with patient by the compensation/benefits specialist and he was counseled to not monitor his heart rhythm. He has been asked to follow-up outpatient with Dr. Nguyen. Patient has been cleared by cardiology for discharge. Patient will be sent home today in a stable condition. All questions were answered. Physical Exam Narrative: General: Alert oriented x3, patient seen laying in bed appearing comfortable. HEENT: Normocephalic, atraumatic, EOMI, breathing normally. Cardio: Regular rate rhythm, normal S1-S2, no murmurs Respiratory: Good bilateral air entry, no wheezes no rhonchi appreciated GI: Abdomen soft, nontender, nondistended, bowel sounds + Behavior: Appropriate and cooperative Extremities:no edema, no cyanosis Discharge Data Studies Completed and Pending Completed Studies During Hospitalization Category Date Time Status XR chest 1V portable [id number] Stat Exams 10/29/21 04:24 Completed Radiology Impressions Chest X-Ray 10/29/21 04:24 IMPRESSION: Poor inspiration with mild left basilar atelectasis. Laboratory Results WBC 7.3 10^3/uL (4.0-10.0) 10/29/21 04:29 RBC 5.54 10^6/uL (4.1-5.3) H 10/29/21 04:29 Hgb 17.3 g/dL (11.7-16.6) H 10/29/21 04:29 Hct 50.0 % (42.0-52.0) 10/29/21 04:29 MCV 90.3 fl (80-94) 10/29/21 04: MCH 31.2 pg (28.0-34.0) 10/29/21 04: MCHC 34.6 g/dL (30.0-36.0) 10/29/21 04:29 RDW 13.6 % (12.1-15.1) 10/29/21 04:29 Plt Count 179 10^3/cmm (130-400) 10/29/21 04:29 MPV 11.0 fL (7.4-10.4) H 10/29/21 04: Neut % (Auto) 48.3 % 10/29/21 04: Lymph % (Auto) 38.8 % 10/29/21 04: [place] % (Auto) 9.3 % 10/29/21 04: Eos % (Auto) 2.1 % 10/29/21 04: Baso % (Auto) 1.0 % 10/29/21 04: Neut # (Auto) 3.52 10^3/uL (1.8-7.7) 10/29/21 04: Lymph # (Auto) 2.8 10^3/uL (0.8-4.8) 10/29/21: [place] # (Auto) 0.7 10^3/uL (0.2-0.9) 10/29/21 04: Eos # (Auto) 0.2 10^3/uL (0.0-0.8) 10/29/21 04: Baso # (Auto) 0.1 10^3/uL (0.0-0.1) 10/29/21 04: Nucleated RBC % (auto) 0 % 10/29/21: Nucleated RBCs # 0.0 /100WBC 10/29/21 04: PT 15.30 SECONDS (12.1-14.9) H 10/29/21 04: INR 1.17 (0.8-1.2) 10/29/21 04: Sodium 138 mmol/L (136-145) 10/29/21 04: Potassium 4.1 mmol/L (3.5-5.1) 10/29/21 04: Chloride 103 mmol/L (98-107) 10/29/21: Carbon Dioxide 22 mmol/L (22-29) 10/29/21: Anion Gap 17.1 (5-19) 10/29/21 04: BUN 20 mg/dL (8-23) 10/29/21 04: Creatinine 1.2 mg/dL (0.7-1.2) 10/29/21 04: GFR Calculation Not Reportable 10/29/21 04: Glucose 108 mg/dL (65-115) 10/29/21 04:29 Calculated Osmolality 289 mOsm/kg (285-295) 10/29/21 04:29 Calcium 9.9 mg/dL (8.5-10.5) 10/29/21 04:29 Total Bilirubin 1.1 mg/dL (0.15-1.2) 10/29/21 04:29 AST 17 U/L (0-40) 10/29/21 04: ALT 19 U/L (0-41) 10/29/21 04:29 Alkaline Phosphatase 54 IU/L (40-130) 10/29/21 04:29 Troponin T Baseline 15 ng/L (0-15) 10/29/21 04:29 Troponin T 120 Minute 16.55 ng/L (0-15) H 10/29/21 06:39 Delta Troponin T 1.55 ABS# (0-10) 10/29/21 06:39 Troponin T Hi Sens 6Hr 17.29 ng/L (0-15) H 10/29/21 10:05 Troponin T Hi Sens 6Hr Delta 2.29 ng/L (0-12) 10/29/21 10:05 NT-Pro-B Natriuret Pep 213 pg/mL (0-450) 10/29/21 04:28 Total Protein 7.0 g/dL (6.6-8.7) 10/29/21 04: Albumin 4.0 g/dL (3.5-5.2) 10/29/21 04: Globulin 3.0 g/dL (1.3-4.6) 10/29/21 04:29 Vitals Last Vital Signs Temp 98.3 F 10/30/21 00:00 Pulse 70 10/30/21 05:46 Resp 15 10/30/21 05:30 BP 132/71 10/30/21 02:00 Pulse Ox 92 10/29/21 20:00 Discharge Plan Discharge Patient Disposition: Home Condition: Stable Prescriptions: Continued levothyroxine 25 mcg tablet 25 mcg PO QAM 0RF simvastatin 20 mg tablet 20 mg PO BEDTIME 0RF docusate sodium 100 mg capsule 100 mg PO QPM 0RF fluticasone propion-salmeterol [Advair Diskus] 250-50 mcg/dose blister with device 1 inh INHALATION Q12H 0RF Eliquis 5 mg tablet 5 mg PO BID 0RF isosorbide dinitrate 5 mg tablet 5 mg PO BID Qty: 180 3RF Vitamin C 500 mg Tablet 500 mg PO DAILY 0RF albuterol sulfate 90 mcg/actuation Hfa Aerosol Inhaler 2 puff INHALATION QID PRN (Reason: Shortness Of Breath) 0RF PreserVision AREDS-2 250-90-40-1 mg Capsule 1 cap PO DAILY 0RF magnesium oxide 400 mg magnesium tablet 400 mg PO QAM 0RF Discontinued metoprolol tartrate 50 mg tablet 25 mg PO BID 90 Days Qty: 90 3RF No Action (DME) Custom Functional Molded Orthotics See Rx Instructions .Route .MEDSUPPLY Qty: 1 0RF Rx Instructions: As directed by [facility] Discharge Orders: Discharge Order (Routine); Ordered 10/30/21 Ordered By: Ana Acosta Referrals: Michele Nguyen MD [Physician] - 1 week Les Marmolejo DO [Primary Care Provider] - Discharge Diet: Cardiac Discharge Activity: Resume usual activity Patient Instructions: Opioid Safety Discharge Attestations Time Spent in Discharge Care*: less than 30 min Quality Metrics Clinical Quality Measures [ No reported AMI, CVA or VTE this stay] Coding Level of Care Code Acute Chg FW DC note Diagnoses Anticoagulation adequate with anticoagulant therapy Z79.01 Bradycardia R00.1 Atherosclerotic heart disease of [place] coronary artery without angina pectoris I25.10 [place] vs. transplanted heart: [place] heart Big[place]iny I49.8 Hyperlipidemia E78.2 Hyperlipidemia type: mixed hyperlipidemia Hypertension I10 Hypertension type: essential hypertension Diabetes E11.9 Diabetes mellitus type: type 2 Diabetes mellitus longterm insulin use: without manager intermediate use Diabetes mellitus complication status: without complication
[2021-10-30] MEDS: isosorbide dinitrate 20 mg Tablet 5 MG PO (09:12)
[2021-10-30] MEDS: atorvastatin 40 mg Tablet 20 MG PO (09:13)
[2021-10-30] MEDS: levothyroxine 25 mcg Tablet PO (09:14)
[2021-10-30] MEDS: apixaban 5 mg Tablet PO (09:14)
== END 2021-10-30 09:45 | disposition home or self-care (01) ==
LOC: ER 04:59 → MEDSURG 05:46 → ICU 12:05
PROVIDERS: Admitting Provider Internal Medicine; Emergency Provider Emergency Medicine; PCP Family Medicine; Visit Provider Internal Medicine
DX: I49.8 Other specified cardiac arrhythmias (principal); Z79.01 Long term (current) use of anticoagulants; I25.10 Atherosclerotic heart disease of native coronary artery without angina pectoris; E78.2 Mixed hyperlipidemia; I10 Essential (primary) hypertension; E11.9 Type 2 diabetes mellitus without complications; Z95.5 Presence of coronary angioplasty implant and graft; Z87.891 Personal history of nicotine dependence; Z82.49 Family history of ischemic heart disease and other diseases of the circulatory system; Z83.3 Family history of diabetes mellitus
CPT/HCPCS: 12345; 71045; 80053; 83880; 84484; 85025; 85610; 93005; 94640; 99285; G0378

== ENCOUNTER → 2022-02-15 10:09 | Outpatient (BNVA) | payer MEDICARE, OTHER, SELFPAY | PROVIDERS: PCP Family Medicine; Visit Provider Nurse Practitioner Family | DX: I49.3 Ventricular premature depolarization (principal) | CPT/HCPCS: 99213; 99214 ==

== ENCOUNTER → 2022-02-28 11:13 | Outpatient (BNVA) | payer MEDICARE, OTHER, SELFPAY | PROVIDERS: PCP Family Medicine; Visit Provider Podiatrist Foot & Ankle Surgery | DX: E11.8 Type 2 diabetes mellitus with unspecified complications (principal); M21.41 Flat foot [pes planus] (acquired), right foot; M21.42 Flat foot [pes planus] (acquired), left foot; M21.621 Bunionette of right foot; M21.622 Bunionette of left foot; L60.3 Nail dystrophy | CPT/HCPCS: 99214 ==

== ENCOUNTER → 2022-04-05 11:30 | Outpatient (BNVA) | payer MEDICARE, OTHER, SELFPAY | PROVIDERS: PCP Family Medicine; Visit Provider Family Medicine | DX: Z79.01 Long term (current) use of anticoagulants (principal); I25.10 Atherosclerotic heart disease of native coronary artery without angina pectoris; E78.2 Mixed hyperlipidemia; I10 Essential (primary) hypertension; E11.9 Type 2 diabetes mellitus without complications; E03.9 Hypothyroidism, unspecified; I48.0 Paroxysmal atrial fibrillation; Z00.00 Encounter for general adult medical examination without abnormal findings; E78.5 Hyperlipidemia, unspecified | CPT/HCPCS: 80053; 80061; 83036; 84443 ==

== ENCOUNTER → 2022-06-14 09:29 | Outpatient (BNVA) | payer MEDICARE, OTHER, SELFPAY | PROVIDERS: PCP Family Medicine; Visit Provider Podiatrist Foot & Ankle Surgery | DX: I73.9 Peripheral vascular disease, unspecified (principal); M21.41 Flat foot [pes planus] (acquired), right foot; M21.42 Flat foot [pes planus] (acquired), left foot; M21.621 Bunionette of right foot; M21.622 Bunionette of left foot; L60.3 Nail dystrophy; Z79.01 Long term (current) use of anticoagulants; E03.9 Hypothyroidism, unspecified | CPT/HCPCS: 11721; 90686 ==

== ENCOUNTER → 2022-09-15 13:00 | Outpatient (BNVA) | payer MEDICARE, OTHER, SELFPAY | PROVIDERS: PCP Family Medicine; Visit Provider Podiatrist Foot & Ankle Surgery | DX: I73.9 Peripheral vascular disease, unspecified (principal); E11.8 Type 2 diabetes mellitus with unspecified complications; M21.41 Flat foot [pes planus] (acquired), right foot; M21.42 Flat foot [pes planus] (acquired), left foot; M21.621 Bunionette of right foot; M21.622 Bunionette of left foot; L60.3 Nail dystrophy; Z79.01 Long term (current) use of anticoagulants; E03.9 Hypothyroidism, unspecified | CPT/HCPCS: 11721 ==

== ENCOUNTER → 2022-09-19 14:01 | Outpatient (BNVA) | payer MEDICARE, OTHER, SELFPAY | PROVIDERS: PCP Family Medicine; Visit Provider Internal Medicine Cardiovascular Disease | DX: I48.0 Paroxysmal atrial fibrillation (principal); I25.10 Atherosclerotic heart disease of native coronary artery without angina pectoris; Z79.01 Long term (current) use of anticoagulants; E11.9 Type 2 diabetes mellitus without complications; I10 Essential (primary) hypertension; E78.2 Mixed hyperlipidemia | CPT/HCPCS: 99214 ==

== ENCOUNTER → 2022-10-04 11:16 | Outpatient (BNVA) | payer MEDICARE, OTHER, SELFPAY | PROVIDERS: PCP Family Medicine; Visit Provider Family Medicine | DX: E03.9 Hypothyroidism, unspecified (principal); E11.9 Type 2 diabetes mellitus without complications; E78.5 Hyperlipidemia, unspecified; I48.91 Unspecified atrial fibrillation; I25.10 Atherosclerotic heart disease of native coronary artery without angina pectoris; I10 Essential (primary) hypertension; E78.2 Mixed hyperlipidemia; I48.0 Paroxysmal atrial fibrillation | CPT/HCPCS: 80053; 80061; 82607; 83036; 84443; 85025 ==

== ENCOUNTER → 2022-12-28 13:01 | Outpatient (BNVA) | payer MEDICARE, OTHER, SELFPAY | PROVIDERS: PCP Family Medicine; Visit Provider Podiatrist Foot & Ankle Surgery | DX: I73.9 Peripheral vascular disease, unspecified (principal); L60.3 Nail dystrophy; M21.41 Flat foot [pes planus] (acquired), right foot; M21.42 Flat foot [pes planus] (acquired), left foot; M21.621 Bunionette of right foot; M21.622 Bunionette of left foot; Z79.01 Long term (current) use of anticoagulants; E03.9 Hypothyroidism, unspecified | CPT/HCPCS: 11721 ==

== ENCOUNTER → 2023-03-01 13:31 | Outpatient (BNVA) | payer MEDICARE, OTHER, SELFPAY | PROVIDERS: PCP Family Medicine; Visit Provider Podiatrist Foot & Ankle Surgery | DX: L60.8 Other nail disorders (principal); M21.41 Flat foot [pes planus] (acquired), right foot; M21.42 Flat foot [pes planus] (acquired), left foot; M21.621 Bunionette of right foot; M21.622 Bunionette of left foot; L60.3 Nail dystrophy; Z79.01 Long term (current) use of anticoagulants; I73.9 Peripheral vascular disease, unspecified; E03.9 Hypothyroidism, unspecified | CPT/HCPCS: 11721 ==

== ENCOUNTER → 2023-03-28 11:25 | Outpatient (BNVA) | payer MEDICARE, OTHER, SELFPAY | PROVIDERS: PCP Family Medicine; Visit Provider Family Medicine | DX: I49.3 Ventricular premature depolarization (principal); I25.10 Atherosclerotic heart disease of native coronary artery without angina pectoris; E78.5 Hyperlipidemia, unspecified; I10 Essential (primary) hypertension; E11.9 Type 2 diabetes mellitus without complications; E03.9 Hypothyroidism, unspecified; I48.91 Unspecified atrial fibrillation; Z13.6 Encounter for screening for cardiovascular disorders; E78.2 Mixed hyperlipidemia; I48.0 Paroxysmal atrial fibrillation | CPT/HCPCS: 80053; 80061; 83036; 84443; 85025 ==

== ENCOUNTER → 2023-04-10 10:02 | Outpatient (BNVA) | payer MEDICARE, OTHER, SELFPAY | PROVIDERS: PCP Family Medicine; Visit Provider Internal Medicine Cardiovascular Disease | DX: I25.10 Atherosclerotic heart disease of native coronary artery without angina pectoris (principal); I49.3 Ventricular premature depolarization; E78.2 Mixed hyperlipidemia; I48.0 Paroxysmal atrial fibrillation; I10 Essential (primary) hypertension; E11.9 Type 2 diabetes mellitus without complications; Z79.01 Long term (current) use of anticoagulants | CPT/HCPCS: 99214 ==

== ENCOUNTER → 2023-05-02 14:33 | Outpatient (BNVA) | payer MEDICARE, OTHER, SELFPAY | PROVIDERS: PCP Family Medicine; Visit Provider Podiatrist Foot & Ankle Surgery | DX: L60.3 Nail dystrophy (principal); Z79.01 Long term (current) use of anticoagulants; I73.9 Peripheral vascular disease, unspecified; E03.9 Hypothyroidism, unspecified | CPT/HCPCS: 11721 ==

== ENCOUNTER 2023-05-18 11:27 | Outpatient (CLI) | payer MEDICARE, OTHER, SELFPAY ==
--- NOTE | 2023-05-18 11:38 | MR_ITS ---
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 COMPARISON: None available. TECHNIQUE: Multiplanar imaging performed through the brain with MultiHance 20 ml's IV. Normal diffusion imaging. No ischemia or acute infarct. Mild bilateral symmetric cerebral and cerebel lar atrophy with mild small vessel ischemic disease. No large prior infarcts. No susceptibility artifacts or prior lacunar infarcts. Ventricles and extra-axial spaces are normal. Clivus and pituitary gland are normal. Visualized posterior fossa and brainstem are also normal. Very mild redundancy of the optic nerves. No signal abnormality or fusiform enlargement. No proptosis . Please note this MRI study was not ordered as a dedicated optic nerve evaluation. No high-resolutio n imaging through the orbits and globes. Postcontrast images are negative for masses or vascular malformations. Dural venous sinuses are normal. Paranasal sinuses: Moderate mucoperiosteal thickening in the maxillary sinus with air-fluid levels. Mastoid air cells: Normal. Calvarium and scalp: Normal. IMPRESSION: 1. No acute infarct or masses. 2. No mass along the optic pathways or the sella turcica. 3. Mild cerebral and cerebellar atrophy with mild small vessel ischemic disease.
[2023-05-18] MEDS: gadobenate dimeglumine 20 mL vial IV (12:45)
== END 2023-05-18 11:28 | disposition home or self-care (01) ==
LOC: RAD 11:27
PROVIDERS: PCP Family Medicine; Visit Provider Student in an Organized Health Care Education/Training Program
DX: H53.413 Scotoma involving central area, bilateral (principal); I67.89 Other cerebrovascular disease
CPT/HCPCS: 70553; A9577

== ENCOUNTER → 2023-08-09 14:42 | Outpatient (BNVA) | payer MEDICARE, OTHER, SELFPAY | PROVIDERS: Visit Provider Podiatrist Foot & Ankle Surgery | DX: Z79.01 Long term (current) use of anticoagulants (principal); E03.9 Hypothyroidism, unspecified; L60.3 Nail dystrophy; I73.9 Peripheral vascular disease, unspecified | CPT/HCPCS: 11721 ==

== ENCOUNTER → 2023-10-18 15:34 | Outpatient (BNVA) | payer MEDICARE, OTHER, SELFPAY | PROVIDERS: Visit Provider Podiatrist Foot & Ankle Surgery | DX: Z79.01 Long term (current) use of anticoagulants (principal); E03.9 Hypothyroidism, unspecified; L60.3 Nail dystrophy; I73.9 Peripheral vascular disease, unspecified | CPT/HCPCS: 11721 ==

== ENCOUNTER → 2023-10-24 10:16 | Outpatient (BNVA) | payer MEDICARE, OTHER, SELFPAY | PROVIDERS: PCP Family Medicine; Visit Provider Family Medicine | DX: Z51.81 Encounter for therapeutic drug level monitoring (principal); E53.8 Deficiency of other specified B group vitamins; E03.9 Hypothyroidism, unspecified; R35.0 Frequency of micturition; I25.10 Atherosclerotic heart disease of native coronary artery without angina pectoris; Z13.220 Encounter for screening for lipoid disorders; E55.9 Vitamin D deficiency, unspecified; E11.9 Type 2 diabetes mellitus without complications | CPT/HCPCS: 80053; 80061; 82306; 82607; 83036; 84153; 84439; 84443; 85025 ==

== ENCOUNTER 2023-10-31 15:22 | Outpatient (CLI) | payer MEDICARE, OTHER, SELFPAY ==
--- NOTE | 2023-10-31 15:30 | US_ITS ---
WS: [id number] TESTICULAR ULTRASOUND HISTORY: Left testicular mass COMPARISON: None available. TECHNIQUE: Real-time and color Doppler imaging or utilized to perform a testicular ultrasound. Right testicle: 4.3 cm x 3.3 cm x 2.1 cm. Normal size and echogenicity. No mass or torsion. Normal color Doppler is present throughout. Systolic and diastolic velocities are both present. No significant hydrocele. Right epididymis: Normal epididymis with no increased vascularity. Left testicle: 4.0 cm x 3.3 cm x 2.4 cm. Normal size and echogenicity. No mass or torsion. Normal color Doppler is present throughout. Systolic and diastolic velocities are both present. No significant hydrocele. Left epididymis: Normal epididymis with no increased vascularity. LEFT epididymis is slightly larger than the RIGHT but there is no increased vascularity. US/US scrotum [id number] IMPRESSION: 1. No testicular mass or torsion. 2. Very slightly enlarged LEFT epididymis as compared to the RIGHT but no epid idymitis. No mass.
== END 2023-10-31 15:23 | disposition home or self-care (01) ==
LOC: RAD 15:22
PROVIDERS: PCP Family Medicine; Visit Provider Family Medicine
DX: N50.89 Other specified disorders of the male genital organs (principal)
CPT/HCPCS: 76870

== ENCOUNTER → 2023-11-01 10:00 | Outpatient (BNVA) | payer MEDICARE, OTHER, SELFPAY | PROVIDERS: PCP Family Medicine; Visit Provider Internal Medicine Cardiovascular Disease | DX: I48.0 Paroxysmal atrial fibrillation (principal); I10 Essential (primary) hypertension; I25.10 Atherosclerotic heart disease of native coronary artery without angina pectoris; I49.3 Ventricular premature depolarization; Z87.891 Personal history of nicotine dependence; Z79.01 Long term (current) use of anticoagulants | CPT/HCPCS: 99214 ==

== ENCOUNTER → 2023-12-27 11:28 | Outpatient (BNVA) | payer MEDICARE, OTHER, SELFPAY | PROVIDERS: PCP Family Medicine; Visit Provider Podiatrist Foot & Ankle Surgery | DX: L60.8 Other nail disorders (principal); Z79.01 Long term (current) use of anticoagulants; E03.9 Hypothyroidism, unspecified; L60.3 Nail dystrophy; I73.9 Peripheral vascular disease, unspecified | CPT/HCPCS: 11721 ==

== ENCOUNTER → 2024-03-13 12:57 | Outpatient (BNVA) | payer MEDICARE, OTHER, SELFPAY | PROVIDERS: PCP Family Medicine; Visit Provider Podiatrist Foot & Ankle Surgery | DX: Z79.01 Long term (current) use of anticoagulants (principal); E03.9 Hypothyroidism, unspecified; L60.8 Other nail disorders; L60.3 Nail dystrophy; I73.9 Peripheral vascular disease, unspecified | CPT/HCPCS: 11721 ==

== ENCOUNTER → 2024-04-23 10:47 | Outpatient (BNVA) | payer MEDICARE, OTHER, SELFPAY | PROVIDERS: PCP Family Medicine; Visit Provider Family Medicine | DX: Z51.81 Encounter for therapeutic drug level monitoring (principal); E03.9 Hypothyroidism, unspecified; I48.0 Paroxysmal atrial fibrillation | CPT/HCPCS: 80053; 84439; 84443; 85025 ==

== ENCOUNTER → 2024-05-06 13:42 | Outpatient (BNVA) | payer MEDICARE, OTHER, SELFPAY | PROVIDERS: PCP Family Medicine; Visit Provider Internal Medicine Cardiovascular Disease | DX: I48.0 Paroxysmal atrial fibrillation (principal); I10 Essential (primary) hypertension; E78.2 Mixed hyperlipidemia; I25.10 Atherosclerotic heart disease of native coronary artery without angina pectoris; I49.3 Ventricular premature depolarization; Z79.01 Long term (current) use of anticoagulants | CPT/HCPCS: 99214 ==

== ENCOUNTER → 2024-05-22 14:45 | Outpatient (BNVA) | payer MEDICARE, OTHER, SELFPAY | PROVIDERS: PCP Family Medicine; Visit Provider Podiatrist Foot & Ankle Surgery | DX: L60.8 Other nail disorders (principal); Z79.01 Long term (current) use of anticoagulants; E03.9 Hypothyroidism, unspecified; L60.3 Nail dystrophy; I73.9 Peripheral vascular disease, unspecified | CPT/HCPCS: 11721 ==

== ENCOUNTER → 2024-07-24 15:30 | Outpatient (BNVA) | payer MEDICARE, OTHER, SELFPAY | PROVIDERS: PCP Family Medicine; Visit Provider Podiatrist Foot & Ankle Surgery | DX: L60.8 Other nail disorders (principal); Z79.01 Long term (current) use of anticoagulants; E03.9 Hypothyroidism, unspecified; L60.3 Nail dystrophy; I73.9 Peripheral vascular disease, unspecified | CPT/HCPCS: 11721 ==

== ENCOUNTER → 2024-09-25 14:45 | Outpatient (BNVA) | payer MEDICARE, OTHER, SELFPAY | PROVIDERS: PCP Family Medicine; Visit Provider Podiatrist Foot & Ankle Surgery | DX: I73.9 Peripheral vascular disease, unspecified (principal); L60.3 Nail dystrophy; Z79.01 Long term (current) use of anticoagulants; E03.9 Hypothyroidism, unspecified | CPT/HCPCS: 11721 ==

== ENCOUNTER → 2024-10-22 11:00 | Outpatient (BNVA) | payer MEDICARE, OTHER, SELFPAY | PROVIDERS: PCP Family Medicine; Visit Provider Family Medicine | DX: Z13.6 Encounter for screening for cardiovascular disorders (principal); E11.9 Type 2 diabetes mellitus without complications; E03.9 Hypothyroidism, unspecified; R35.0 Frequency of micturition; Z51.81 Encounter for therapeutic drug level monitoring | CPT/HCPCS: 80053; 80061; 83036; 84153; 84439; 84443; 85025 ==

== ENCOUNTER → 2024-11-04 11:00 | Outpatient (BNVA) | payer MEDICARE, OTHER, SELFPAY | PROVIDERS: PCP Family Medicine; Visit Provider Nurse Practitioner Family | DX: I48.0 Paroxysmal atrial fibrillation (principal); Z79.01 Long term (current) use of anticoagulants; R06.02 Shortness of breath; I10 Essential (primary) hypertension; E78.2 Mixed hyperlipidemia; I25.10 Atherosclerotic heart disease of native coronary artery without angina pectoris; I49.3 Ventricular premature depolarization; Z87.891 Personal history of nicotine dependence; Z95.5 Presence of coronary angioplasty implant and graft | CPT/HCPCS: 99214 ==

== ENCOUNTER 2024-11-21 07:42 | Outpatient (CLI) | payer MEDICARE, OTHER, SELFPAY ==
--- NOTE | 2024-11-21 07:45 | USCV_ITS ---
HungSavage lopez Age: 84 Gender: M : 1940 Exam Date: 11/21/2024 08:17 Ordering Phys: Yuridia Vang NP Technologist: Prateek Coates Exam Location: [facility] – [place] Indication: sob BP: 158 / 70 HR: 62 Rhythm: Sinus Technical Quality: Adequate MEASUREMENTS (Male / Female) Normal Values 2D ECHO LV Diastolic Diameter PLAX 4.2 cm 4.2 - 5.9 / 3.9 - 5.3 cm IVS Diastolic Thickness 1.8 cm 0.6 - 1.0 / 0.6 - 0.9 cm IVS Systolic Thickness 1.8 cm LVPW Diastolic Thickness 1.7 cm 0.6 - 1.0 / 0.6 - 0.9 cm LVPW Systolic Thickness 2.3 cm LVOT Diameter 2.1 cm LV Ejection Fraction 2D Teich 62.3 % LV Ejection Fraction MOD 4C 71.8 % LV Ejection Fraction MOD 2C 62.4 % LV Ejection Fraction 2C AL 62.8 % LA Diameter 3.5 cm RA Systolic Volume 4C AL 47.4 ml RA Systolic Volume 4C MOD 45.6 ml LA Sys Volume AL 64.4 cm cubed LA Sys Volume Index AL 29.5 cm cubed/m squared Aorta at Sinotubular Diameter 2.2 cm M-MODE LA Ao Ratio MM 1.4 AV Cusp Separation MM 0.9 cm DOPPLER AV Peak Velocity 175.3 cm/s LVOT Peak Velocity 63.0 cm/s AV Area Cont Eq vti 1.2 cm squared AV Area Cont Eq pk 1.2 cm squared MV Peak Velocity 89.0 cm/s MV Area PHT 4.5 cm squared Mitral E to A Ratio 1.0 TV Peak Velocity 294.3 cm/s TR Peak Velocity 340.0 cm/s TR Peak Gradient 46.2 mmHg TR Mean Velocity 246.0 cm/s TR Mean Gradient 26.7 mmHg TR Velocity Time Integral 91.8 cm PV Peak Velocity 90.3 cm/s RV Ejection Time 0.3 s FINDINGS Left Ventricle Normal left ventricular size and systolic function, EF 62%.. No regional wall motion abnormalities. Grade II/IV diastolic dysfunction, moderately elevated filling pressures. Right Ventricle The right ventricle is normal in size and function. Right Atrium The right atrium is normal in size. Left Atrium Mildly increased left atrial size. Mitral Valve Trace mitral valve regurgitation. Aortic Valve Aortic valve sclerosis. Tricuspid Valve Trace tricuspid valve regurgitation. Pulmonic Valve Trace pulmonary valve regurgitation. Pericardium No pericardial effusion. Aorta Plaque seen in the ascending aorta. IVC The inferior vena cava appears normal. CONCLUSIONS Normal left ventricular size and systolic function, EF 62%.. No regional wall motion abnormalities. Grade II/IV diastolic dysfunction, moderately elevated filling pressures. Mildly increased left atrial size. Trace mitral valve regurgitation. Aortic valve sclerosis. Trace tricuspid valve regurgitation. Estimated pulmonary artery peak systolic pressure 30 mmHg Trace pulmonary valve regurgitation. Minimal plaques in the ascending aorta There is no pericardial effusion. Compared to the study from 11/22/2023, there is a significant improvement in the LV ejection fraction from 35 - 40% to 62% Dr Michele Nguyen MD [facility] (Electronically Signed) Final Date: 25 Nov 2024 19:19 S
== END 2024-11-21 07:43 | disposition home or self-care (01) ==
PROVIDERS: PCP Family Medicine; Visit Provider Nurse Practitioner Family
DX: R06.02 Shortness of breath (principal); R93.1 Abnormal findings on diagnostic imaging of heart and coronary circulation; I51.7 Cardiomegaly; I35.8 Other nonrheumatic aortic valve disorders; I70.0 Atherosclerosis of aorta
CPT/HCPCS: 93306

== ENCOUNTER → 2024-12-04 14:46 | Outpatient (BNVA) | payer MEDICARE, OTHER, SELFPAY | PROVIDERS: PCP Family Medicine; Visit Provider Podiatrist Foot & Ankle Surgery | DX: I73.9 Peripheral vascular disease, unspecified (principal); L60.3 Nail dystrophy; Z79.01 Long term (current) use of anticoagulants; E03.9 Hypothyroidism, unspecified | CPT/HCPCS: 11721 ==

== ENCOUNTER → 2024-12-19 08:24 | Outpatient (BNVA) | payer MEDICARE, OTHER, SELFPAY | PROVIDERS: PCP Family Medicine; Visit Provider Nurse Practitioner Family | DX: D22.0 Melanocytic nevi of lip (principal); L81.4 Other melanin hyperpigmentation; L57.8 Other skin changes due to chronic exposure to nonionizing radiation; X32.XXXA Exposure to sunlight, initial encounter; L82.1 Other seborrheic keratosis; L08.9 Local infection of the skin and subcutaneous tissue, unspecified; L30.9 Dermatitis, unspecified | CPT/HCPCS: 11104; 99203 ==

== ENCOUNTER → 2024-12-31 09:47 | Outpatient (BNVA) | payer MEDICARE, OTHER, SELFPAY | PROVIDERS: PCP Family Medicine; Visit Provider Nurse Practitioner Family | DX: L73.9 Follicular disorder, unspecified (principal) | CPT/HCPCS: 99213 ==

== ENCOUNTER → 2025-02-10 13:42 | Outpatient (BNVA) | payer MEDICARE, OTHER, SELFPAY | PROVIDERS: PCP Family Medicine; Visit Provider Podiatrist Foot & Ankle Surgery | DX: I73.9 Peripheral vascular disease, unspecified (principal); L60.3 Nail dystrophy; L60.8 Other nail disorders; Z79.01 Long term (current) use of anticoagulants; E03.9 Hypothyroidism, unspecified | CPT/HCPCS: 11721 ==

== ENCOUNTER → 2025-04-23 10:14 | Outpatient (BNVA) | payer MEDICARE, OTHER, SELFPAY | PROVIDERS: PCP Family Medicine; Visit Provider Family Medicine | DX: E53.8 Deficiency of other specified B group vitamins (principal); E03.9 Hypothyroidism, unspecified; R35.0 Frequency of micturition; Z51.81 Encounter for therapeutic drug level monitoring | CPT/HCPCS: 80053; 82607; 84153; 84439; 84443; 85025 ==

== ENCOUNTER → 2025-05-08 10:29 | Outpatient (BNVA) | payer MEDICARE, OTHER, SELFPAY | PROVIDERS: PCP Family Medicine; Visit Provider Internal Medicine Cardiovascular Disease | DX: I48.0 Paroxysmal atrial fibrillation (principal); I10 Essential (primary) hypertension; E78.2 Mixed hyperlipidemia; I25.10 Atherosclerotic heart disease of native coronary artery without angina pectoris; I49.3 Ventricular premature depolarization; Z79.01 Long term (current) use of anticoagulants | CPT/HCPCS: 99214 ==

== ENCOUNTER → 2025-05-13 13:33 | Outpatient (BNVA) | payer MEDICARE, OTHER, SELFPAY | PROVIDERS: PCP Family Medicine; Visit Provider Podiatrist Foot & Ankle Surgery | DX: E11.8 Type 2 diabetes mellitus with unspecified complications (principal); L60.3 Nail dystrophy; L60.8 Other nail disorders; Z79.01 Long term (current) use of anticoagulants; E03.9 Hypothyroidism, unspecified; I73.9 Peripheral vascular disease, unspecified | CPT/HCPCS: 11721 ==